=== PATIENT | female | born 1965 | race Caucasian/White ===

== ENCOUNTER → 2016-12-02 | Outpatient (CLI) | payer OTHER ==
--- NOTE | 2016-12-02 14:13 | RAD ---
Indication chronic pain associated with a fall approximately one year previously. AP and lateral views targeted to the sacrum and coccyx were obtained. No bony abnormality is seen. Vascular calcification is noted
--- NOTE | 2016-12-02 14:17 | RAD ---
Indication persistent pain associated with a fall one year ago. AP and frog leg views of the left hip were obtained. No acute bony finding is seen. Significant degenerative changes are not apparent on plain films
--- NOTE | 2016-12-02 14:18 | RAD ---
Indication fall. Pain. AP oblique and lateral views of the left knee were obtained. No bony abnormality is seen
== END | disposition home or self-care (01) ==
LOC: DXRAD 13:17
PROVIDERS: ATTEND Family Medicine
DX: M25.552 Pain in left hip (principal); M25.562 Pain in left knee; W19.XXXD Unspecified fall, subsequent encounter
CPT/HCPCS: 72220; 73502; 73562

== ENCOUNTER 2017-01-19 21:46 | Emergency (ER) | payer OTHER ==
[~2017-01-19] VITALS: Ht 157.5 cm; Wt 52.2 kg
[2017-01-19] MEDS ORDERED: ONDANSETRON PF 4 MG/2 ML VIAL. IV ONE (22:30)
[2017-01-19] MEDS ORDERED: KETOROLAC 30 MG/ML VIAL. IV ONE (22:30)
[2017-01-19] MEDS ORDERED: IV NORMAL SALINE 1,000ML 1,000 ML IV ONE (22:30)
[2017-01-19] MEDS ORDERED: ACETAMINOPHEN 325 MG TABLET PO ONE ×2 (22:30)
[2017-01-19 23:30] LABS: BASO # 0.1 x10^3/uL (0.0-0.2); BASO % 1 % (0-3); EOS # 0.1 x10^3/uL (0.0-0.7); EOS % 1 % (0-3); HEMATOCRIT 39.2 % (36.0-47.0); HEMOGLOBIN 13.5 g/dL (12.0-15.5); LYMPH # 1.9 x10^3/uL (1.0-4.8); LYMPH % 19 % (24-48); MEAN CORPUSCULAR HEMOGLOBIN 31 pg (25-35); MEAN CORPUSCULAR HGB CONC 34 g/dL (31-37); MEAN CORPUSCULAR VOLUME 90 fL (79-100); MONO % 10 % (0-9); NEUT # 6.8 x10^3uL (1.8-7.7); NEUT % 69 % (31-73); PLATELET COUNT 237 x10^3/uL (140-400); RED BLOOD COUNT 4.34 x10^6/uL (3.50-5.40); RED CELL DISTRIBUTION WIDTH 13.3 % (11.5-14.5); WHITE BLOOD COUNT 9.9 x10^3/uL (4.0-11.0)
[2017-01-19 23:36] LABS: ALBUMIN 2.9 g/dL (3.4-5.0); ALBUMIN/GLOBULIN RATIO 0.7 (1.0-1.7); CALCIUM 8.5 mg/dL (8.5-10.1); CREATININE 0.9 mg/dL (0.6-1.0); POTASSIUM 3.7 mmol/L (3.5-5.1); TOTAL BILIRUBIN 0.2 mg/dL (0.2-1.0); TOTAL PROTEIN 6.8 g/dL (6.4-8.2)
[2017-01-19 23:44] LABS: MONONUCLEOSIS PATIENT NEGATIVE (NEGATIVE)
[2017-01-19 23:53] LABS: BILIRUBIN,URINE NEG (NEG); CLARITY,URINE CLEAR; COLOR,URINE YELLOW; GLUCOSE,URINE NEG (NEG); UROBILINOGEN,URINE 0.2 mg/dL (0.2 mg/dL)
[2017-01-19 23:54] LABS: BACTERIA,URINE FEW /HPF (0-FEW); NITRITE,URINE NEG (NEG); RBC,URINE 0 /HPF (0-2); SQUAMOUS EPITHELIAL CELL,UR OCC /LPF; WBC,URINE OCC /HPF (0-4)
--- NOTE | 2017-01-20 00:22 | PHYS DOC ---
Adult General Chief Complaint Chief Complaint: HEADACHE HPI HPI Patient is a 51-year-old female who presents here today secondary to fever, headache, neck pain, sore throat, ear pain. Patient has a history significant for COPD. Patient reports that she seen her family doctor over the last 3 weeks and has been put on at least 3 different rounds of antibiotics. Patient reports that she was given a course of Zithromax, clarithromycin, minocycline, as recently as finished her antibiotics a couple days ago. Patient presents to the ER today with complaints of fevers to 101.6 at home and has taken ibuprofen 800 mg 2 doses today. Patient denies any nausea vomiting or diarrhea. Patient has any chest pain or shortness of breath. Patient is complaining of sore throat. Patient has no history of hypertension diabetes liver or kidney problems. Patient is status post a total abdominal hysterectomy. Patient does not smoke drink or do any drugs. Patient is allergic to any medications. Patient denies any abdominal discomfort or chest pain. Patient denies any photophobia. Family reports no change in mentation. Review of systems: Constitutional: Admits to fever and chills Eyes: Denies change in visual acuity, redness, or eye pain HENT: Denies nasal congestion All other review systems are negative except as documented in the history of present illness portion. Physical exam: Constitutional: Well developed, well nourished, no acute distress, non-toxic appearance. HENT: Normocephalic, atraumatic, bilateral external ears normal, oropharynx moist, no oral exudates, nose normal. Mild facial erythema no exudates. No trismus. Uvula midline. No evidence of abscess. Eyes: PERRLA, EOMI, conjunctiva normal, no discharge. Neck: Normal range of motion, no tenderness, supple, no stridor. No Kernig's or Brudzinski signs. No photophobia, no nuchal rigidity, neck supple, no sinus symptoms consistent with meningitis. Cardiovascular:Heart rate regular rhythm, Lungs & Thorax: Bilateral breath sounds clear to auscultation Abdomen: Bowel sounds normal, soft, no tenderness, no masses, no pulsatile masses. Skin: Warm, dry, no erythema, no rash. Back: No tenderness, no CVA tenderness. Extremities: No tenderness, no cyanosis, no clubbing, ROM intact, no edema. Neurologic: Alert and oriented X 3, normal motor function, normal sensory function, no focal deficits noted. Psychologic: Affect normal, judgement normal, mood normal. Chest x-ray: Normal heart size no infiltrates or effusions as interpreted by ER physician. CBC, CMP, UA: All within normal limits. Assessment and plan This is a 51-year-old female who presents here today with a fever 102.1 in the ED with a headache, neck pain, sore throat. Patient's ER workup is been unremarkable. Etiology of her fever is unclear. Patient does not present with any significant symptoms consistent with meningitis, encephalitis, abdominal source, urinary tract infection, strep throat, mono. Patient's workup is unremarkable and she is clinically hemodynamically stable for discharged home at this time. Patient has been given a dose of Toradol Tylenol IV fluids in the ED. Patient's temperature has defervesced and she feels 100% improved. Patient feels very comfortable with the plan to be discharged home and she will see her doctor tomorrow for reevaluation and decision making on antibiotics. Patient currently does not meet any criteria for initiating antibiotic therapy at this time since no source has been identified and we've agreed after discussion with the patient to allow her physician tomorrow to make that decision. She was instructed to return the ER she has any new symptoms. Current Medications Current Medications Current Medications Medications (Trade) Dose Ordered Sig/Wero Start Time Stop Time Status Last Admin Dose Admin Acetaminophen (Tylenol) 650 mg 1X ONCE 01/19/17 22:30 01/19/17 22:31 DC 01/19/17 22:57 650 MG Ketorolac Tromethamine (Toradol) 30 mg 1X ONCE 01/19/17 22:30 01/19/17 22:31 DC 01/19/17 22:58 30 MG Ondansetron HCl (Zofran) 4 mg 1X ONCE 01/19/17 22:30 01/19/17 22:31 DC 01/19/17 22:58 4 MG Sodium Chloride 1,000 ml @ 1,000 mls/hr 1X ONCE 01/19/17 22:30 01/19/17 23:29 DC 01/19/17 22:59 1,000 MLS/HR Allergies Allergies Allergies Coded Allergies Type Severity Reaction Last Updated Verified No Known Drug Allergies 01/19/17 No Current Patient Data Lab Results Laboratory Tests Test 01/19/17 22:40 01/19/17 22:45 Urine Collection Type Unknown Urine Color Yellow Urine Clarity Clear Urine pH 7.0 Urine Specific [place] 1.015 Urine Protein Neg (NEG-TRACE) Urine Glucose (UA) Neg mg/dL (NEG) Urine Ketones (Stick) Neg mg/dL (NEG) Urine Blood Trace (NEG) Urine Nitrite Neg (NEG) Urine Bilirubin Neg (NEG) Urine Urobilinogen Dipstick 0.2 mg/dL (0.2 mg/dL) Urine Leukocyte Esterase Trace (NEG) Urine RBC 0 /HPF (0-2) Urine WBC Occ /HPF (0-4) Urine Squamous Epithelial Cells Occ /LPF Urine Bacteria Few /HPF (0-FEW) White Blood Count 9.9 x10^3/uL (4.0-11.0) Red Blood Count 4.34 x10^6/uL (3.50-5.40) Hemoglobin 13.5 g/dL (12.0-15.5) Hematocrit 39.2 % (36.0-47.0) Mean Corpuscular Volume 90 fL (79-100) Mean Corpuscular Hemoglobin 31 pg (25-35) Mean Corpuscular Hemoglobin Concent 34 g/dL (31-37) Red Cell Distribution Width 13.3 % (11.5-14.5) Platelet Count 237 x10^3/uL (140-400) Neutrophils (%) (Auto) 69 % (31-73) Lymphocytes (%) (Auto) 19 % (24-48) L Monocytes (%) (Auto) 10 % (0-9) H Eosinophils (%) (Auto) 1 % (0-3) Basophils (%) (Auto) 1 % (0-3) Neutrophils # (Auto) 6.8 x10^3uL (1.8-7.7) Lymphocytes # (Auto) 1.9 x10^3/uL (1.0-4.8) Monocytes # (Auto) 1.0 x10^3/uL (0.0-1.1) Eosinophils # (Auto) 0.1 x10^3/uL (0.0-0.7) Basophils # (Auto) 0.1 x10^3/uL (0.0-0.2) Sodium Level 137 mmol/L (136-145) Potassium Level 3.7 mmol/L (3.5-5.1) Chloride Level 103 mmol/L (98-107) Carbon Dioxide Level 28 mmol/L (21-32) Anion Gap 6 (6-14) Blood Urea Nitrogen 5 mg/dL (7-20) L Creatinine 0.9 mg/dL (0.6-1.0) Estimated GFR (Cockcroft-Gault) 66.0 BUN/Creatinine Ratio 6 (6-20) Glucose Level 102 mg/dL (70-99) H Calcium Level 8.5 mg/dL (8.5-10.1) Total Bilirubin 0.2 mg/dL (0.2-1.0) Aspartate Amino Transferase (AST) 11 U/L (15-37) L Alanine Aminotransferase (ALT) 16 U/L (14-59) Alkaline Phosphatase 101 U/L (46-116) Total Protein 6.8 g/dL (6.4-8.2) Albumin 2.9 g/dL (3.4-5.0) L Albumin/Globulin Ratio 0.7 (1.0-1.7) L Heterophil Agglutinins Negative (NEGATIVE) EKG EKG [] Radiology/Procedures Radiology/Procedures [] Course & Med Decision Making Course & Med Decision Making Pertinent Labs and Imaging studies reviewed. (See chart for details) [] Dragon Disclaimer Dragon Disclaimer This chart was dictated in whole or in part using Voice Recognition software in a busy, high-work load, and often noisy Emergency Department environment. It may contain unintended and wholly unrecognized errors or omissions. Departure Departure: Impression: Primary Impression: Fever Additional Impression: Headache Disposition: 01 HOME, SELF-CARE Condition: IMPROVED Referrals: RUSSELL HSU (PCP) Patient Instructions: Fever, Viral Syndrome Additional Instructions: You were seen and evaluated in the ER today for your fever and headache. No clear source of been identified. Return the ER if your headache worsens. Please follow-up with her doctor to further evaluate your symptoms and to see if he wants to put you on any antibiotics. Your symptoms today appear to be more consistent with a viral illness and antibiotics do not appear to be indicated at this time. Return to the ER immediately if he have any new or worsening symptoms. Problem Qualifiers KELLEE SRINIVASAN MD Jan 20, 2017 00:22
[2017-01-20 00:34] VITALS: BP 82/49
--- NOTE | 2017-01-20 07:57 | RAD ---
EXAM: CHEST 2 VIEWS History: Fever, headache, weakness COMPARISON: None TECHNIQUE: PA and lateral chest radiographs FINDINGS: The cardiomediastinal silhouette is within normal limits. Mild hyperinflated lungs likely changes of COPD. The costophrenic sulci are clear and well demarcated bilaterally. IMPRESSION: Mild hyperinflated lungs likely changes of COPD.
== END 2017-01-20 00:34 | disposition home or self-care (01) ==
LOC: ER 21:46
DX: R50.9 Fever, unspecified (principal); R51 Headache; M54.2 Cervicalgia; J02.9 Acute pharyngitis, unspecified; H92.09 Otalgia, unspecified ear; J44.9 Chronic obstructive pulmonary disease, unspecified
CPT/HCPCS: 36415; 71020; 80053; 81001; 85025; 86308; 87086; 87880; 96361; 96374; 96375; 99285; J1885; J2405; J7030

== ENCOUNTER 2018-01-05 14:19 | Inpatient (IN) | payer MEDICARE, OTHER ==
[~2018-01-05] VITALS: Ht 157.5 cm; Wt 52.7 kg
[2018-01-05] MEDS ORDERED: IV NORMAL SALINE 1,000ML 1,000 ML IV ONE (15:15)
[2018-01-05] MEDS ORDERED: PIP/TAZO PER PHARMACY MC PRN (15:15)
[2018-01-05] MEDS ORDERED: IV NORMAL SALINE 50ML 50 ML ONE (15:28)
[2018-01-05] MEDS ORDERED: PIPERACILLIN/TAZOBACTAM 4.5 GM VIAL IV ONE (15:28)
[2018-01-05] MEDS ORDERED: PIPERACILLIN/TAZOBACTAM 4.5 GM in IV NORMAL SALINE 50ML 50 ML IV ONE (15:30)
[2018-01-05 15:38] LABS: BASO % 0 % (0-3); EOS % 0 % (0-3); HEMATOCRIT 43.6 % (36.0-47.0); HEMOGLOBIN 15.2 g/dL (12.0-15.5); LYMPH # 0.5 x10^3/uL (1.0-4.8); LYMPH % 4 % (24-48); MEAN CORPUSCULAR HEMOGLOBIN 32 pg (25-35); MEAN CORPUSCULAR HGB CONC 35 g/dL (31-37); MEAN CORPUSCULAR VOLUME 93 fL (79-100); MONO # 1.4 x10^3/uL (0.0-1.1); MONO % 12 % (0-9); NEUT % 84 % (31-73); PLATELET COUNT 156 x10^3/uL (140-400); RED BLOOD COUNT 4.71 x10^6/uL (3.50-5.40); RED CELL DISTRIBUTION WIDTH 13.4 % (11.5-14.5); WHITE BLOOD COUNT 11.9 x10^3/uL (4.0-11.0)
--- NOTE | 2018-01-05 15:46 | RAD ---
Portable chest, 01/05/2018: HISTORY: Chest pain Comparison is made to a study from 01/19/2017. The patient positioning is kyphotic. The heart size is normal. No pulmonary infiltrate is seen. There is no evidence of pleural fluid. IMPRESSION: No acute cardiopulmonary abnormality is detected. Electronically signed by: Brendon Main MD (01/05/2018 3:42 PM) [facility]
[2018-01-05 15:53] LABS: ALBUMIN 2.7 g/dL (3.4-5.0); ALBUMIN/GLOBULIN RATIO 0.6 (1.0-1.7); CALCIUM 8.5 mg/dL (8.5-10.1); CREATININE 0.9 mg/dL (0.6-1.0); GFR 65.8; POTASSIUM 3.6 mmol/L (3.5-5.1); TOTAL BILIRUBIN 0.7 mg/dL (0.2-1.0); TOTAL PROTEIN 7.5 g/dL (6.4-8.2)
[2018-01-05 15:57] LABS: INFLUENZA A PATIENT NEGATIVE (NEGATIVE); INFLUENZA B PATIENT NEGATIVE (NEGATIVE)
--- NOTE | 2018-01-05 16:20 | PHYS DOC ---
Past History Past Medical History: COPD Past Surgical History: Appendectomy, Hysterectomy Alcohol Use: None Drug Use: None Adult General Chief Complaint Chief Complaint: ABNORMAL LABS HPI HPI 52-year-old female presents with a several day history of malaise, body aches and diarrhea. She was seen at an outside facility and had some blood work drawn. The states that she has done nothing but lay in bed over the last several days and is just not been herself. She denies any headache or neck pain. She was told by her physician in [facility] to come to the emergency department because her blood culture showed bacterial growth. Patient denies any urinary symptoms. She's not had any cough or congestion. She has had subjective fever at home. Review of Systems Review of Systems Constitutional: Reports fever[] Eyes: Denies change in visual acuity, redness, or eye pain [] HENT: Denies nasal congestion or sore throat [] Respiratory: Denies cough or shortness of breath [] Cardiovascular: No additional information not addressed in HPI [] GI: Denies abdominal pain, nausea, vomiting, bloody stools or diarrhea [] : Denies dysuria or hematuria [] Musculoskeletal: Denies back pain or joint pain [] Integument: Denies rash or skin lesions [] Neurologic: Denies headache, focal weakness or sensory changes [] Endocrine: Denies polyuria or polydipsia [] All other systems were reviewed and found to be within normal limits, except as documented in this note. Current Medications Current Medications Current Medications Medications (Trade) Dose Ordered Sig/Wero Start Time Stop Time Status Last Admin Dose Admin Piperacillin Sod/ Tazobactam Sod (Zosyn Per Pharmacy) 1 each PRN DAILY PRN 01/05/18 15:15 Piperacillin Sod/ Tazobactam Sod (Zosyn) 4.5 gm STK-MED ONCE 01/05/18 15:28 01/05/18 15:29 DC Piperacillin Sod/ Tazobactam Sod 4.5 gm/Sodium Chloride 50 ml @ 100 mls/hr 1X ONCE 01/05/18 15:30 01/05/18 15:59 DC 01/05/18 15:32 100 MLS/HR Sodium Chloride 50 ml @ As Directed STK-MED ONCE 01/05/18 15:28 01/05/18 15:29 DC Allergies Allergies Allergies Coded Allergies Type Severity Reaction Last Updated Verified No Known Drug Allergies 01/19/17 No Physical Exam Physical Exam Constitutional: Frail, no acute distress, appears acutely ill. [] HENT: Normocephalic, atraumatic, bilateral external ears normal, oropharynx moist, no oral exudates, nose normal. [] Eyes: PERRLA, EOMI, conjunctiva normal, no discharge. [] Neck: Normal range of motion, no tenderness, supple, no stridor. [] Cardiovascular:Heart rate regular rhythm, no murmur [] Lungs & Thorax: Bilateral breath sounds clear to auscultation [] Abdomen: Bowel sounds normal, soft, no tenderness, no masses, no pulsatile masses. [] Skin: Warm, dry, no erythema, no rash. [] Back: No tenderness, no CVA tenderness. [] Extremities: No tenderness, no cyanosis, no clubbing, ROM intact, no edema. [] Neurologic: Alert and oriented X 3, normal motor function, normal sensory function, no focal deficits noted. [] Psychologic: Depressed affect. [] Current Patient Data Vital Signs Vital Signs Date Time Temp Pulse Resp B/P (MAP) Pulse Ox O2 Delivery O2 Flow Rate FiO2 01/05/18 14:45 99.6 113 22 96 Room Air Lab Results Laboratory Tests Test 01/05/18 15:22 White Blood Count 11.9 x10^3/uL (4.0-11.0) H Red Blood Count 4.71 x10^6/uL (3.50-5.40) Hemoglobin 15.2 g/dL (12.0-15.5) Hematocrit 43.6 % (36.0-47.0) Mean Corpuscular Volume 93 fL (79-100) Mean Corpuscular Hemoglobin 32 pg (25-35) Mean Corpuscular Hemoglobin Concent 35 g/dL (31-37) Red Cell Distribution Width 13.4 % (11.5-14.5) Platelet Count 156 x10^3/uL (140-400) Neutrophils (%) (Auto) 84 % (31-73) H Lymphocytes (%) (Auto) 4 % (24-48) L Monocytes (%) (Auto) 12 % (0-9) H Eosinophils (%) (Auto) 0 % (0-3) Basophils (%) (Auto) 0 % (0-3) Neutrophils # (Auto) 10.0 x10^3uL (1.8-7.7) H Lymphocytes # (Auto) 0.5 x10^3/uL (1.0-4.8) L Monocytes # (Auto) 1.4 x10^3/uL (0.0-1.1) H Eosinophils # (Auto) 0.0 x10^3/uL (0.0-0.7) Basophils # (Auto) 0.0 x10^3/uL (0.0-0.2) Sodium Level 130 mmol/L (136-145) L Potassium Level 3.6 mmol/L (3.5-5.1) Chloride Level 97 mmol/L (98-107) L Carbon Dioxide Level 22 mmol/L (21-32) Anion Gap 11 (6-14) Blood Urea Nitrogen 18 mg/dL (7-20) Creatinine 0.9 mg/dL (0.6-1.0) Estimated GFR (Cockcroft-Gault) 65.8 BUN/Creatinine Ratio 20 (6-20) Glucose Level 137 mg/dL (70-99) H Lactic Acid Level 1.2 mmol/L (0.4-2.0) Calcium Level 8.5 mg/dL (8.5-10.1) Total Bilirubin 0.7 mg/dL (0.2-1.0) Aspartate Amino Transferase (AST) 61 U/L (15-37) H Alanine Aminotransferase (ALT) 46 U/L (14-59) Alkaline Phosphatase 172 U/L (46-116) H Total Protein 7.5 g/dL (6.4-8.2) Albumin 2.7 g/dL (3.4-5.0) L Albumin/Globulin Ratio 0.6 (1.0-1.7) L Influenza Type A (Rapid) Negative (NEGATIVE) Influenza Type B (Rapid) Negative (NEGATIVE) EKG EKG [] Radiology/Procedures Radiology/Procedures [] Impressions: PROCEDURE: CHEST AP ONLY Portable chest, 01/05/2018: HISTORY: Chest pain Comparison is made to a study from 01/19/2017. The patient positioning is kyphotic. The heart size is normal. No pulmonary infiltrate is seen. There is no evidence of pleural fluid. IMPRESSION: No acute cardiopulmonary abnormality is detected. Course & Med Decision Making Course & Med Decision Making Pertinent Labs and Imaging studies reviewed. (See chart for details) [ED course: Evaluation reveals 52-year-old female who appears acutely ill. Her laboratory studies earlier unrevealing her chest x-ray was clear. During her stay in the emergency department she received broad-spectrum antibiotics because we were unable to locate her primary care physician exactly what had Crohn in her blood cultures. I believe the patient should stay in the hospital given the fact that she has fairly significant malaise, subjective fevers and a report of bacteremia.] Dragon Disclaimer Dragon Disclaimer This electronic medical record was generated, in whole or in part, using a voice recognition dictation system. Departure Departure: Impression: Primary Impression: Bacteremia Disposition: ADMITTED INPATIENT Admitting Physician: Other (colt) Condition: STABLE Referrals: ALEXANDER HSU NP (PCP) ALLEN VAZQUEZ DO Jan 05, 2018 16:20
[2018-01-05] MEDS ORDERED: ACETAMINOPHEN 325 MG TABLET PO PRN (16:30)
[2018-01-05 17:50] VITALS: BP 91/59
[2018-01-05] MEDS: IV NORMAL SALINE 1,000ML 1,000 ML IV SCH ×3 (18:26→22:01)
[2018-01-05 19:24] VITALS: BP 95/46
[2018-01-05 22:20] VITALS: BP 98/56
[2018-01-05] MEDS ORDERED: TIOT18CA INH (23:40)
[2018-01-05] MEDS ORDERED: ONDA4TAB11 PO (23:40)
[2018-01-05] MEDS ORDERED: ALBU8.5H8 INH (23:40)
[2018-01-05] MEDS ORDERED: BUPR150T11 PO (23:40)
[2018-01-05] MEDS ORDERED: POTA20TA4 PO (23:40)
[2018-01-05] MEDS ORDERED: ROFL500T7 PO (23:40)
[2018-01-05] MEDS ORDERED: HYDR-2762 PO (23:40)
[2018-01-05] MEDS: PIPERACILLIN/TAZOBACTAM 4.5 GM in IV NORMAL SALINE 50ML 50 ML IV SCH (23:47)
[2018-01-06 00:15] VITALS: BP 92/62
[2018-01-06] MEDS: IV NORMAL SALINE 1,000ML 1,000 ML IV SCH ×2 (00:27→08:01)
[2018-01-06 03:06] LABS: BACTERIA,URINE 0 /HPF (0-FEW); BILIRUBIN,URINE NEG (NEG); CLARITY,URINE CLEAR; COLOR,URINE YELLOW; GLUCOSE,URINE NEG (NEG); NITRITE,URINE NEG (NEG); RBC,URINE OCC /HPF (0-2); SQUAMOUS EPITHELIAL CELL,UR FEW /LPF; UROBILINOGEN,URINE 2 mg/dL (0.2 mg/dL); WBC,URINE OCC /HPF (0-4)
[2018-01-06 05:35] VITALS: BP 96/65
[2018-01-06] MEDS: PIPERACILLIN/TAZOBACTAM 4.5 GM in IV NORMAL SALINE 50ML 50 ML IV SCH ×3 (05:38→17:35)
[2018-01-06 06:23] LABS: BASO % 0 % (0-3); EOS % 0 % (0-3); HEMATOCRIT 36.6 % (36.0-47.0); HEMOGLOBIN 12.4 g/dL (12.0-15.5); LYMPH # 0.9 x10^3/uL (1.0-4.8); LYMPH % 10 % (24-48); MEAN CORPUSCULAR HEMOGLOBIN 32 pg (25-35); MEAN CORPUSCULAR HGB CONC 34 g/dL (31-37); MEAN CORPUSCULAR VOLUME 94 fL (79-100); MONO # 1.2 x10^3/uL (0.0-1.1); MONO % 14 % (0-9); NEUT # 6.9 x10^3uL (1.8-7.7); NEUT % 76 % (31-73); PLATELET COUNT 130 x10^3/uL (140-400); RED BLOOD COUNT 3.92 x10^6/uL (3.50-5.40); RED CELL DISTRIBUTION WIDTH 13.3 % (11.5-14.5); WHITE BLOOD COUNT 9.1 x10^3/uL (4.0-11.0)
[2018-01-06 06:32] LABS: CALCIUM 7.3 mg/dL (8.5-10.1); CREATININE 0.8 mg/dL (0.6-1.0); GFR 75.3; POTASSIUM 3.3 mmol/L (3.5-5.1)
[2018-01-06] MEDS: LACTOBACILLUS RHAMNOSUS GG 1 CAPSULE. PO SCH ×2 (08:01→20:19)
[2018-01-06] MEDS ORDERED: BUPR150T8 PO (09:02)
[2018-01-06] MEDS ORDERED: ALPR0.254 PO (09:09)
[2018-01-06] MEDS ORDERED: FEXO180T81 PO (09:09)
[2018-01-06] MEDS ORDERED: CYCL-331 PO (09:09)
[2018-01-06] MEDS ORDERED: RALO60TA PO (09:09)
[2018-01-06] MEDS ORDERED: IBUP800T19 PO (09:09)
[2018-01-06] MEDS ORDERED: SUMA100T4 PO (09:09)
[2018-01-06] MEDS ORDERED: FLUT16SP21 NS (09:09)
[2018-01-06] MEDS ORDERED: TRAZ-85 PO (09:09)
[2018-01-06] MEDS ORDERED: PROM5SYR2 PO (09:09)
[2018-01-06] MEDS ORDERED: FLUT1DIS5 IH (09:09)
--- NOTE | 2018-01-06 09:14 | PDOC1 ---
History of Present Illness History of Present Illness 52-year-old female sent to the emergency department from [facility] Dr. Dunne's office with report of positive blood culture. Patient states that she began feeling ill with diarrhea, fever, and overwhelming fatigue on Thursday. Thursday morning when she wasn't strong enough to get out of bed her took her to [facility] [place] for evaluation. She was diagnosed with gastroenteritis and discharged home initially with Zofran. Although the diarrhea resolved the patient remained feeling ill and somnolescent. Yesterday the patient's spouse contacted her PCP by phone with the recommendation that he bring her to [facility] emergency department for evaluation and hospitalization with positive blood culture. Dr. Dunne faxed blood culture results (Klebsiella pneumonia with broad sensitivities) and she was admitted with Zosyn intravenously. On my evaluation today patient states she is "100% better." She says she has energy and is able to stay awake for the first time in days. She did spike a fever overnight but otherwise denies any new or worsening symptoms. She does have a cough but states it's not worse than baseline with her COPD. Further questioning, patient did have a left acromioplasty and scar tissue and debridement 2-3 weeks ago which at this point is the likely source of infection. She denies any worsening of shoulder pain or swelling but states that she had been doing very well with outpatient physical therapy. Past medical history: COPD, anxiety, osteoporosis, migraines, allergic rhinitis Past surgical history: Bilateral shoulder surgeries, herniorrhaphy, hysterectomy Social history: Patient is former smoker nonuser of alcohol or illicit substances Chief Complaint: ABNORMAL LABS Allergies: Coded Allergies: No Known Drug Allergies (Unverified , 01/19/17) Review of Systems Review Of Systems Fourteen system , review of systems has been reviewed. See HPI for pertinent positives and negative responses, other pope all other systems are negative, non pertinent or non contributory Constitutional: Fever, Chills, Sweats, Weakness, Malaise Eyes: No: Decreased vision, Eye Pain, Photophobia ENT: No: Ear pain, Nose pain, Throat pain Respiratory: YES: Cough, Wheezing (pulmonary symptoms are at her baseline); No: Shortness of breath, SOB with excertion Cardiovascular: No: Chest Pain, Palpitations, Paroxysmal Noc. Dyspnea Gastrointestinal: YES: Abdominal Pain, Diarrhea; No: Nausea, Vomiting, Constipation Musculoskeletal: No: Joint Pain, Joint Stiffness, Joint Swelling Neurological: No: Behavorial Changes, Confusion, Dizziness, Memory Loss Medications Current Medications Sodium Chloride 1,000 ml @ 1,000 mls/hr 1X ONCE IV Last administered on at 15:31; Start 01/05/18 at 15:15; Stop 01/05/18 at 16:14; Status DC Piperacillin Sod/ Tazobactam Sod (Zosyn Per Pharmacy) 1 each PRN DAILY PRN MC SEE COMMENTS; Start 01/05/18 at 15:15 Piperacillin Sod/ Tazobactam Sod 4.5 gm/Sodium Chloride 50 ml @ 100 mls/hr 1X ONCE IV Last administered on 01/05/18at 15:32; Start 01/05/18 at 15:30; Stop 03/14 at 15:59; Status DC Sodium Chloride 50 ml @ As Directed STK-MED ONCE .ROUTE ; Start 01/05/18 at 15: 28; Stop 01/05/18 at 15:29; Status DC Piperacillin Sod/ Tazobactam Sod (Zosyn) 4.5 gm STK-MED ONCE IV ; Start at 15:28; Stop 01/05/18 at 15:29; Status DC Sodium Chloride 1,000 ml @ 125 mls/hr Q8H IV Last administered on 01/06/18at 08 :01; Start 01/05/18 at 16:30; Stop 01/06/18 at 16:29 Acetaminophen (Tylenol) 650 mg PRN Q4HRS PRN PO FEVER; Start 01/05/18 at 16:30 ; Stop 01/06/18 at 16:29 Sodium Chloride 1,000 ml @ 1,500 mls/hr Q40M IV Last administered on at 22:01; Start 01/05/18 at 21:00; Stop 01/05/18 at 21:59; Status DC Piperacillin Sod/ Tazobactam Sod 4.5 gm/Sodium Chloride 50 ml @ 100 mls/hr Q6HRS IV Last administered on 01/06/18at 05:38; Start 01/06/18 at 00:00 Lactobacillus Rhamnosus (Culturelle) 1 cap BID PO Last administered on at 08:01; Start 01/06/18 at 09:00 Active Scripts Active Reported Robina Allergy (Fexofenadine Hcl) 180 Mg Tablet 1 Tab PO DAILY Prometh-Codein 6.25-10 mg/5 ml (Promethazine HCl/Codeine) 5 Ml Syrup 5-10 Ml PO Q12HR PRN Fluticasone Propionate Nasal [place] (Fluticasone Propionate) 16 Gm [place].susp 2 Spr NS DAILY PRN Ibuprofen 800 Mg Tablet 1 Tab PO TID PRN Sumatriptan Succinate 100 Mg Tablet 1 Tab PO UD PRN Evista (Raloxifene Hcl) 60 Mg Tablet 1 Tab PO DAILY Alprazolam 0.25 Mg Tablet 0.5 Tab PO BID PRN Trazodone Hcl 50 Mg Tablet 1 Tab PO QHS Cyclobenzaprine Hcl 10 Mg Tablet 1 Tab PO TID Advair 500-50 Diskus (Fluticasone/Salmeterol) 1 Each Disk.w.dev 1 Puff IH BID Wellbutrin Sr (Bupropion Hcl) 150 Mg Tablet.er 1 Tab PO QHS Proair Hfa Inhaler (Albuterol Sulfate) 8.5 Gm Hfa.aer.ad 1-2 Puff INH PRN Q4HRS PRN LAST DOSE GIVEN: DATE: TIME: NEXT DOSE DUE: DATE: TIME: Spiriva (Tiotropium [place]) 18 Mcg Cap.w.dev 18 Mg INH DAILY LAST DOSE GIVEN: DATE: TIME: NEXT DOSE DUE: DATE: TIME: Bupropion Hcl Sr (Bupropion Hcl) 150 Mg Tablet.er 300 Mg PO DAILY LAST DOSE GIVEN: DATE: TIME: NEXT DOSE DUE: DATE: TIME: Hydrocodone-Apap 7.5-325 (Hydrocodone Bit/Acetaminophen) 1 Each Tablet 7.5 Mg PO PRN Q6HRS PRN LAST DOSE GIVEN: DATE: TIME: NEXT DOSE DUE: DATE: TIME: Daliresp (Roflumilast) 500 Mcg Tablet 500 Mcg PO HS LAST DOSE GIVEN: DATE: TIME: NEXT DOSE DUE: DATE: TIME: Klor-Con M20 (Potassium Chloride) 20 Meq Tab.er.prt 20 Meq PO QODAY LAST DOSE GIVEN: DATE: TIME: NEXT DOSE DUE: DATE: TIME: Exam Vital Signs Vital Signs Date Time Temp Pulse Resp B/P (MAP) Pulse Ox O2 Delivery O2 Flow Rate FiO2 9/12/18 05:35 99.1 88 18 96/65 (75) 97 Nasal Cannula 2.0 General Appearance: Alert, Oriented X3, Cooperative, No acute distress HEENT: Atraumatic, PERRLA, EOMI, Mucous membr. moist/pink Respiratory: Other (faint wheeze bilaterally with good air movement no respiratory distress) Heart: Regular rate, No murmurs Abdominal: Normal bowel sounds, Soft, No tenderness Extremities: No clubbing, No cyanosis, No edema Neuro: Normal speech, Normal tone, Sensation intact, Cranial nerves 3-12 NL Psych/Mental Status: Mental status NL, Mood NL Assessment/Plan Assessment/Plan Klebsiella pneumonia bacteremia COURSE Allergies Coded Allergies Type Severity Reaction Last Updated Verified No Known Drug Allergies 01/19/17 No Laboratory Tests Test 01/05/18 15:22 01/06/18 02:45 01/06/18 05:57 White Blood Count 11.9 x10^3/uL (4.0-11.0) 9.1 x10^3/uL (4.0-11.0) Red Blood Count 4.71 x10^6/uL (3.50-5.40) 3.92 x10^6/uL (3.50-5.40) Hemoglobin 15.2 g/dL (12.0-15.5) 12.4 g/dL (12.0-15.5) Hematocrit 43.6 % (36.0-47.0) 36.6 % (36.0-47.0) Mean Corpuscular Volume 93 fL (79-100) 94 fL (79-100) Mean Corpuscular Hemoglobin 32 pg (25-35) 32 pg (25-35) Mean Corpuscular Hemoglobin Concent 35 g/dL (31-37) 34 g/dL (31-37) Red Cell Distribution Width 13.4 % (11.5-14.5) 13.3 % (11.5-14.5) Platelet Count 156 x10^3/uL (140-400) 130 x10^3/uL (140-400) Neutrophils (%) (Auto) 84 % (31-73) 76 % (31-73) Lymphocytes (%) (Auto) 4 % (24-48) 10 % (24-48) Monocytes (%) (Auto) 12 % (0-9) 14 % (0-9) Eosinophils (%) (Auto) 0 % (0-3) 0 % (0-3) Basophils (%) (Auto) 0 % (0-3) 0 % (0-3) Neutrophils # (Auto) 10.0 x10^3uL (1.8-7.7) 6.9 x10^3uL (1.8-7.7) Lymphocytes # (Auto) 0.5 x10^3/uL (1.0-4.8) 0.9 x10^3/uL (1.0-4.8) Monocytes # (Auto) 1.4 x10^3/uL (0.0-1.1) 1.2 x10^3/uL (0.0-1.1) Eosinophils # (Auto) 0.0 x10^3/uL (0.0-0.7) 0.0 x10^3/uL (0.0-0.7) Basophils # (Auto) 0.0 x10^3/uL (0.0-0.2) 0.0 x10^3/uL (0.0-0.2) Sodium Level 130 mmol/L (136-145) 135 mmol/L (136-145) Potassium Level 3.6 mmol/L (3.5-5.1) 3.3 mmol/L (3.5-5.1) Chloride Level 97 mmol/L (98-107) 105 mmol/L (98-107) Carbon Dioxide Level 22 mmol/L (21-32) 22 mmol/L (21-32) Anion Gap 11 (6-14) 8 (6-14) Blood Urea Nitrogen 18 mg/dL (7-20) 11 mg/dL (7-20) Creatinine 0.9 mg/dL (0.6-1.0) 0.8 mg/dL (0.6-1.0) Estimated GFR (Cockcroft-Gault) 65.8 75.3 BUN/Creatinine Ratio 20 (6-20) Glucose Level 137 mg/dL (70-99) 104 mg/dL (70-99) Lactic Acid Level 1.2 mmol/L (0.4-2.0) Calcium Level 8.5 mg/dL (8.5-10.1) 7.3 mg/dL (8.5-10.1) Total Bilirubin 0.7 mg/dL (0.2-1.0) Aspartate Amino Transf (AST/SGOT) 61 U/L (15-37) Alanine Aminotransferase (ALT/SGPT) 46 U/L (14-59) Alkaline Phosphatase 172 U/L (46-116) Total Protein 7.5 g/dL (6.4-8.2) Albumin 2.7 g/dL (3.4-5.0) Albumin/Globulin Ratio 0.6 (1.0-1.7) Influenza Type A (Rapid) Negative (NEGATIVE) Influenza Type B (Rapid) Negative (NEGATIVE) Urine Collection Type Unknown Urine Color Yellow Urine Clarity Clear Urine pH 5.5 Urine Specific [place] 1.020 Urine Protein 100 mg/dl (NEG-TRACE) Urine Glucose (UA) Neg mg/dL (NEG) Urine Ketones (Stick) 15 mg/dL (NEG) Urine Blood Small (NEG) Urine Nitrite Neg (NEG) Urine Bilirubin Neg (NEG) Urine Urobilinogen Dipstick 2 mg/dL (0.2 mg/dL) Urine Leukocyte Esterase Neg (NEG) Urine RBC Occ /HPF (0-2) Urine WBC Occ /HPF (0-4) Urine Squamous Epithelial Cells Few /LPF Urine Bacteria 0 /HPF (0-FEW) Current Medications Medications (Trade) Dose Ordered Sig/Wero Route PRN Reason Start Time Stop Time Status Last Admin Dose Admin Sodium Chloride 1,000 ml @ 1,000 mls/hr 1X ONCE IV 01/05/18 15:15 01/05/18 16:14 DC 01/05/18 15:31 Piperacillin Sod/ Tazobactam Sod (Zosyn Per Pharmacy) 1 each PRN DAILY PRN MC SEE COMMENTS 01/05/18 15:15 Piperacillin Sod/ Tazobactam Sod 4.5 gm/Sodium Chloride 50 ml @ 100 mls/hr 1X ONCE IV 01/05/18 15:30 01/05/18 15:59 DC 01/05/18 15:32 Sodium Chloride 50 ml @ As Directed STK-MED ONCE .ROUTE 01/05/18 15:28 01/05/18 15:29 DC Piperacillin Sod/ Tazobactam Sod (Zosyn) 4.5 gm STK-MED ONCE IV 01/05/18 15:28 01/05/18 15:29 DC Sodium Chloride 1,000 ml @ 125 mls/hr Q8H IV 01/05/18 16:30 01/06/18 16:29 01/06/18 08:01 Acetaminophen (Tylenol) 650 mg PRN Q4HRS PRN PO FEVER 01/05/18 16:30 01/06/18 16:29 Sodium Chloride 1,000 ml @ 1,500 mls/hr Q40M IV 01/05/18 21:00 01/05/18 21:59 DC 01/05/18 22:01 Piperacillin Sod/ Tazobactam Sod 4.5 gm/Sodium Chloride 50 ml @ 100 mls/hr Q6HRS IV 01/06/18 00:00 01/06/18 05:38 Lactobacillus Rhamnosus (Culturelle) 1 cap BID PO 01/06/18 09:00 01/06/18 08:01 I & O 01/06/18 00:00 Intake Total 2125 ml Output Total 100 ml Balance 2025 ml Orders Procedure Category Date Status Time Saline Lock ER 01/05/18 Transmitted 15:03 Chest Ap Only RAD 01/05/18 Resulted 15:03 Blood Culture NADEEN 01/05/18 In Process 15:03 Cbc W Autodiff LAB 01/05/18 Complete 15:03 Comprehensive LAB 01/05/18 Complete Metabolic Panel 15:03 Lactic Acid LAB 01/05/18 Complete 15:03 Influenza A&B Rapid LAB 01/05/18 Complete 15:03 Ua, Cult If Indicated LAB 01/05/18 Complete 15:03 Iv Normal Saline PHA 01/05/18 Complete 1,000ml (Iv Sodium 15:15 Blood Culture NADEEN 01/05/18 In Process 15:04 Pip/Tazo Per Pharmacy PHA 01/05/18 In Process (Zosyn Per Pharmac 15:15 Piperacillin/Tazobactam PHA 01/05/18 Complete (Zosyn) 15:30 Iv Normal Saline 50ml PHA 01/05/18 Complete (Iv Sodium Chlorid 15:28 Piperacillin/Tazobactam PHA 01/05/18 Complete (Zosyn) 15:28 Ed Bridge Order ADT 01/05/18 Transmitted 16:20 Code Status CODE 01/05/18 Transmitted 16:20 Vital Signs, Per TONA 01/05/18 In Process Protocol 16:20 Advance Diet As TONA 01/05/18 In Process Tolerated 16:20 Ambulate Ad Mojgan TONA 01/05/18 In Process 16:20 Iv Normal Saline [facility] 01/05/18 In Process 1,000ml (Iv Sodium 16:30 Acetaminophen PHA 01/05/18 In Process (Tylenol) 16:30 Cbc W Autodiff LAB 01/06/18 Complete 05:00 Basic Metabolic Panel LAB 01/06/18 Complete 05:00 Admit Orders ADT 01/05/18 Transmitted Gi Soft DIET 01/06/18 Transmitted Breakfast Admission Screening CONS 01/05/18 Transmitted 19:13 Smoking Cessation RT 01/05/18 Complete 3-10 Min 19:13 Cdif W/ Epi Pcr LAB 01/05/18 In Process 20:40 Iv Normal Saline [facility] 01/05/18 Complete 1,000ml (Iv Sodium 21:00 Piperacillin/Tazobactam PHA 01/06/18 In Process (Zosyn) 00:00 Lactobacillus PHA 01/06/18 In Process Rhamnosus Gg 09:00 Pt. On Electrolyte [facility] 01/06/18 In Process Protocol 09:13 Vancomycin Per PHA 01/06/18 Transmitted Pharmacy (Vanco Per 09:15 Vital Signs Date Time Temp Pulse Resp B/P (MAP) Pulse Ox O2 Delivery O2 Flow Rate FiO2 01/06/18 05:35 99.1 88 18 96/65 (75) 97 Nasal Cannula 2.0 EFRAIN COLON DO Jan 06, 2018 09:14
[2018-01-06] MEDS ORDERED: VANCOMYCIN PER PHARMACY MC PRN (09:15)
[2018-01-06] MEDS ORDERED: VANCOMYCIN 1.25 GM in IV NORMAL SALINE 250ML 250 ML IV ONE (10:00)
[2018-01-06 10:33] VITALS: BP 87/60
[2018-01-06] MEDS: IPRATRPIUM/ALBUTEROL 0.5/2.5MG 3 ML NEBU. NEB SCH ×3 (13:00→20:21)
--- NOTE | 2018-01-06 13:33 | PDOC1 ---
History of Present Illness Chief Complaint: ABNORMAL LABS Allergies: Coded Allergies: No Known Drug Allergies (Unverified , 01/19/17) Review of Systems Review Of Systems Fourteen system , review of systems has been reviewed. See HPI for pertinent positives and negative responses, other pope all other systems are negative, non pertinent or non contributory Medications Current Medications Sodium Chloride 1,000 ml @ 1,000 mls/hr 1X ONCE IV Last administered on at 15:31; Start 01/05/18 at 15:15; Stop 01/05/18 at 16:14; Status DC Piperacillin Sod/ Tazobactam Sod (Zosyn Per Pharmacy) 1 each PRN DAILY PRN MC SEE COMMENTS; Start 01/05/18 at 15:15 Piperacillin Sod/ Tazobactam Sod 4.5 gm/Sodium Chloride 50 ml @ 100 mls/hr 1X ONCE IV Last administered on 01/05/18at 15:32; Start 01/05/18 at 15:30; Stop 03/14 at 15:59; Status DC Sodium Chloride 50 ml @ As Directed STK-MED ONCE .ROUTE ; Start 01/05/18 at 15: 28; Stop 01/05/18 at 15:29; Status DC Piperacillin Sod/ Tazobactam Sod (Zosyn) 4.5 gm STK-MED ONCE IV ; Start at 15:28; Stop 01/05/18 at 15:29; Status DC Sodium Chloride 1,000 ml @ 125 mls/hr Q8H IV Last administered on 01/06/18at 08 :01; Start 01/05/18 at 16:30; Stop 01/06/18 at 16:29 Acetaminophen (Tylenol) 650 mg PRN Q4HRS PRN PO FEVER; Start 01/05/18 at 16:30 ; Stop 01/06/18 at 16:29 Sodium Chloride 1,000 ml @ 1,500 mls/hr Q40M IV Last administered on at 22:01; Start 01/05/18 at 21:00; Stop 01/05/18 at 21:59; Status DC Piperacillin Sod/ Tazobactam Sod 4.5 gm/Sodium Chloride 50 ml @ 100 mls/hr Q6HRS IV Last administered on 01/06/18at 12:42; Start 01/06/18 at 00:00 Lactobacillus Rhamnosus (Culturelle) 1 cap BID PO Last administered on at 08:01; Start 01/06/18 at 09:00 Vancomycin HCl (Vanco Per Pharmacy) 1 each PRN DAILY PRN MC SEE COMMENTS Last administered on 01/06/18at 09:52; Start 01/06/18 at 09:15 Vancomycin HCl 750 mg/Sodium Chloride 250 ml @ 250 mls/hr Q12H IV ; Start 01/06 at 22:00 Vancomycin HCl 1.25 gm/Sodium Chloride 250 ml @ 167 mls/hr 1X ONCE IV Last administered on 01/06/18at 10:20; Start 01/06/18 at 10:00; Stop 01/06/18 at 11:29 ; Status DC Vancomycin HCl (Vancomycin Trough Level) 1 each 1X ONCE MC ; Start 01/07/18 at 21:30; Stop 01/07/18 at 21:31 Active Scripts Active Reported Robina Allergy (Fexofenadine Hcl) 180 Mg Tablet 1 Tab PO DAILY Prometh-Codein 6.25-10 mg/5 ml (Promethazine HCl/Codeine) 5 Ml Syrup 5-10 Ml PO Q12HR PRN Fluticasone Propionate Nasal [place] (Fluticasone Propionate) 16 Gm [place].susp 2 Spr NS DAILY PRN Ibuprofen 800 Mg Tablet 1 Tab PO TID PRN Sumatriptan Succinate 100 Mg Tablet 1 Tab PO UD PRN Evista (Raloxifene Hcl) 60 Mg Tablet 1 Tab PO DAILY Alprazolam 0.25 Mg Tablet 0.5 Tab PO BID PRN Trazodone Hcl 50 Mg Tablet 1 Tab PO QHS Cyclobenzaprine Hcl 10 Mg Tablet 1 Tab PO TID Advair 500-50 Diskus (Fluticasone/Salmeterol) 1 Each Disk.w.dev 1 Puff IH BID Wellbutrin Sr (Bupropion Hcl) 150 Mg Tablet.er 1 Tab PO QHS Proair Hfa Inhaler (Albuterol Sulfate) 8.5 Gm Hfa.aer.ad 1-2 Puff INH PRN Q4HRS PRN LAST DOSE GIVEN: DATE: TIME: NEXT DOSE DUE: DATE: TIME: Spiriva (Tiotropium [place]) 18 Mcg Cap.w.dev 18 Mg INH DAILY LAST DOSE GIVEN: DATE: TIME: NEXT DOSE DUE: DATE: TIME: Bupropion Hcl Sr (Bupropion Hcl) 150 Mg Tablet.er 300 Mg PO DAILY LAST DOSE GIVEN: DATE: TIME: NEXT DOSE DUE: DATE: TIME: Hydrocodone-Apap 7.5-325 (Hydrocodone Bit/Acetaminophen) 1 Each Tablet 7.5 Mg PO PRN Q6HRS PRN LAST DOSE GIVEN: DATE: TIME: NEXT DOSE DUE: DATE: TIME: Daliresp (Roflumilast) 500 Mcg Tablet 500 Mcg PO HS LAST DOSE GIVEN: DATE: TIME: NEXT DOSE DUE: DATE: TIME: Klor-Con M20 (Potassium Chloride) 20 Meq Tab.er.prt 20 Meq PO QODAY LAST DOSE GIVEN: DATE: TIME: NEXT DOSE DUE: DATE: TIME: Exam Vital Signs Vital Signs Date Time Temp Pulse Resp B/P (MAP) Pulse Ox O2 Delivery O2 Flow Rate FiO2 01/06/18 10:33 98.1 85 16 87/60 (69) 96 Nasal Cannula 2.0 COURSE Allergies Coded Allergies Type Severity Reaction Last Updated Verified No Known Drug Allergies 01/19/17 No Laboratory Tests Test 01/05/18 15:22 01/06/18 02:45 01/06/18 05:57 White Blood Count 11.9 x10^3/uL (4.0-11.0) 9.1 x10^3/uL (4.0-11.0) Red Blood Count 4.71 x10^6/uL (3.50-5.40) 3.92 x10^6/uL (3.50-5.40) Hemoglobin 15.2 g/dL (12.0-15.5) 12.4 g/dL (12.0-15.5) Hematocrit 43.6 % (36.0-47.0) 36.6 % (36.0-47.0) Mean Corpuscular Volume 93 fL (79-100) 94 fL (79-100) Mean Corpuscular Hemoglobin 32 pg (25-35) 32 pg (25-35) Mean Corpuscular Hemoglobin Concent 35 g/dL (31-37) 34 g/dL (31-37) Red Cell Distribution Width 13.4 % (11.5-14.5) 13.3 % (11.5-14.5) Platelet Count 156 x10^3/uL (140-400) 130 x10^3/uL (140-400) Neutrophils (%) (Auto) 84 % (31-73) 76 % (31-73) Lymphocytes (%) (Auto) 4 % (24-48) 10 % (24-48) Monocytes (%) (Auto) 12 % (0-9) 14 % (0-9) Eosinophils (%) (Auto) 0 % (0-3) 0 % (0-3) Basophils (%) (Auto) 0 % (0-3) 0 % (0-3) Neutrophils # (Auto) 10.0 x10^3uL (1.8-7.7) 6.9 x10^3uL (1.8-7.7) Lymphocytes # (Auto) 0.5 x10^3/uL (1.0-4.8) 0.9 x10^3/uL (1.0-4.8) Monocytes # (Auto) 1.4 x10^3/uL (0.0-1.1) 1.2 x10^3/uL (0.0-1.1) Eosinophils # (Auto) 0.0 x10^3/uL (0.0-0.7) 0.0 x10^3/uL (0.0-0.7) Basophils # (Auto) 0.0 x10^3/uL (0.0-0.2) 0.0 x10^3/uL (0.0-0.2) Sodium Level 130 mmol/L (136-145) 135 mmol/L (136-145) Potassium Level 3.6 mmol/L (3.5-5.1) 3.3 mmol/L (3.5-5.1) Chloride Level 97 mmol/L (98-107) 105 mmol/L (98-107) Carbon Dioxide Level 22 mmol/L (21-32) 22 mmol/L (21-32) Anion Gap 11 (6-14) 8 (6-14) Blood Urea Nitrogen 18 mg/dL (7-20) 11 mg/dL (7-20) Creatinine 0.9 mg/dL (0.6-1.0) 0.8 mg/dL (0.6-1.0) Estimated GFR (Cockcroft-Gault) 65.8 75.3 BUN/Creatinine Ratio 20 (6-20) Glucose Level 137 mg/dL (70-99) 104 mg/dL (70-99) Lactic Acid Level 1.2 mmol/L (0.4-2.0) Calcium Level 8.5 mg/dL (8.5-10.1) 7.3 mg/dL (8.5-10.1) Total Bilirubin 0.7 mg/dL (0.2-1.0) Aspartate Amino Transf (AST/SGOT) 61 U/L (15-37) Alanine Aminotransferase (ALT/SGPT) 46 U/L (14-59) Alkaline Phosphatase 172 U/L (46-116) Total Protein 7.5 g/dL (6.4-8.2) Albumin 2.7 g/dL (3.4-5.0) Albumin/Globulin Ratio 0.6 (1.0-1.7) Influenza Type A (Rapid) Negative (NEGATIVE) Influenza Type B (Rapid) Negative (NEGATIVE) Urine Collection Type Unknown Urine Color Yellow Urine Clarity Clear Urine pH 5.5 Urine Specific [place] 1.020 Urine Protein 100 mg/dl (NEG-TRACE) Urine Glucose (UA) Neg mg/dL (NEG) Urine Ketones (Stick) 15 mg/dL (NEG) Urine Blood Small (NEG) Urine Nitrite Neg (NEG) Urine Bilirubin Neg (NEG) Urine Urobilinogen Dipstick 2 mg/dL (0.2 mg/dL) Urine Leukocyte Esterase Neg (NEG) Urine RBC Occ /HPF (0-2) Urine WBC Occ /HPF (0-4) Urine Squamous Epithelial Cells Few /LPF Urine Bacteria 0 /HPF (0-FEW) Current Medications Medications (Trade) Dose Ordered Sig/Wero Route PRN Reason Start Time Stop Time Status Last Admin Dose Admin Sodium Chloride 1,000 ml @ 1,000 mls/hr 1X ONCE IV 01/05/18 15:15 01/05/18 16:14 DC 01/05/18 15:31 Piperacillin Sod/ Tazobactam Sod (Zosyn Per Pharmacy) 1 each PRN DAILY PRN MC SEE COMMENTS 01/05/18 15:15 Piperacillin Sod/ Tazobactam Sod 4.5 gm/Sodium Chloride 50 ml @ 100 mls/hr 1X ONCE IV 01/05/18 15:30 9/11/18 15:59 DC 01/05/18 15:32 Sodium Chloride 50 ml @ As Directed STK-MED ONCE .ROUTE 01/05/18 15:28 01/05/18 15:29 DC Piperacillin Sod/ Tazobactam Sod (Zosyn) 4.5 gm STK-MED ONCE IV 01/05/18 15:28 01/05/18 15:29 DC Sodium Chloride 1,000 ml @ 125 mls/hr Q8H IV 01/05/18 16:30 01/06/18 16:29 01/06/18 08:01 Acetaminophen (Tylenol) 650 mg PRN Q4HRS PRN PO FEVER 01/05/18 16:30 01/06/18 16:29 Sodium Chloride 1,000 ml @ 1,500 mls/hr Q40M IV 01/05/18 21:00 01/05/18 21:59 DC 01/05/18 22:01 Piperacillin Sod/ Tazobactam Sod 4.5 gm/Sodium Chloride 50 ml @ 100 mls/hr Q6HRS IV 01/06/18 00:00 01/06/18 12:42 Lactobacillus Rhamnosus (Culturelle) 1 cap BID PO 01/06/18 09:00 01/06/18 08:01 Vancomycin HCl (Vanco Per Pharmacy) 1 each PRN DAILY PRN MC SEE COMMENTS 01/06/18 09:15 01/06/18 09:52 Vancomycin HCl 750 mg/Sodium Chloride 250 ml @ 250 mls/hr Q12H IV 01/06/18 22:00 Vancomycin HCl 1.25 gm/Sodium Chloride 250 ml @ 167 mls/hr 1X ONCE IV 01/06/18 10:00 01/06/18 11:29 DC 01/06/18 10:20 Vancomycin HCl (Vancomycin Trough Level) 1 each 1X ONCE MC 01/07/18 21:30 01/07/18 21:31 I & O 01/06/18 00:00 Intake Total 2125 ml Output Total 100 ml Balance 2025 ml Orders Procedure Category Date Status Time Saline Lock ER 01/05/18 Transmitted 15:03 Chest Ap Only RAD 01/05/18 Resulted 15:03 Blood Culture NADEEN 01/05/18 In Process 15:03 Cbc W Autodiff LAB 01/05/18 Complete 15:03 Comprehensive LAB 01/05/18 Complete Metabolic Panel 15:03 Lactic Acid LAB 01/05/18 Complete 15:03 Influenza A&B Rapid LAB 01/05/18 Complete 15:03 Ua, Cult If Indicated LAB 01/05/18 Complete 15:03 Iv Normal Saline PHA 01/05/18 Complete 1,000ml (Iv Sodium 15:15 Blood Culture NADEEN 01/05/18 In Process 15:04 Pip/Tazo Per Pharmacy PHA 01/05/18 In Process (Zosyn Per Pharmac 15:15 Piperacillin/Tazobactam PHA 01/05/18 Complete (Zosyn) 15:30 Iv Normal Saline 50ml PHA 01/05/18 Complete (Iv Sodium Chlorid 15:28 Piperacillin/Tazobactam PHA 01/05/18 Complete (Zosyn) 15:28 Ed Bridge Order ADT 01/05/18 Transmitted 16:20 Code Status CODE 01/05/18 Transmitted 16:20 Vital Signs, Per TONA 01/05/18 In Process Protocol 16:20 Advance Diet As TONA 01/05/18 In Process Tolerated 16:20 Ambulate Ad Mojgan TONA 01/05/18 In Process 16:20 Iv Normal Saline PHA 01/05/18 In Process 1,000ml (Iv Sodium 16:30 Acetaminophen PHA 01/05/18 In Process (Tylenol) 16:30 Cbc W Autodiff LAB 01/06/18 Complete 05:00 Basic Metabolic Panel LAB 01/06/18 Complete 05:00 Admit Orders ADT 01/05/18 Transmitted Gi Soft DIET 01/06/18 Transmitted Breakfast Admission Screening CONS 01/05/18 Transmitted 19:13 Smoking Cessation RT 01/05/18 Complete 3-10 Min 19:13 Cdif W/ Epi Pcr LAB 01/05/18 In Process 20:40 Iv Normal Saline PHA 01/05/18 Complete 1,000ml (Iv Sodium 21:00 Piperacillin/Tazobactam PHA 01/06/18 In Process (Zosyn) 00:00 Lactobacillus PHA 01/06/18 In Process Rhamnosus Gg 09:00 Pt. On Electrolyte TONA 01/06/18 In Process Protocol 09:13 Vancomycin Per PHA 01/06/18 In Process Pharmacy (Vanco Per 09:15 Vancomycin PHA 01/06/18 In Process (Vancomycin) 22:00 Vancomycin PHA 01/06/18 Complete (Vancomycin) 10:00 Vancomycin, Trough LAB 01/07/18 Verified 21:30 Vancomycin Trough PHA 01/07/18 In Process Level (Vancomycin Trou 21:30 Vital Signs Date Time Temp Pulse Resp B/P (MAP) Pulse Ox O2 Delivery O2 Flow Rate FiO2 01/06/18 10:33 98.1 85 16 87/60 (69) 96 Nasal Cannula 2.0 EFRAIN COLON DO Jan 06, 2018 13:33
[2018-01-06] MEDS ORDERED: HYDR25TA PO (14:46)
[2018-01-06] MEDS ORDERED: POLY17PO5 PO (14:46)
[2018-01-06] MEDS ORDERED: BUPR150T15 PO (14:46)
[2018-01-06 15:00] VITALS: BP 92/60
[2018-01-06] MEDS: ACETAMINOPHEN 325 MG TABLET PO PRN (17:35)
[2018-01-06 19:30] VITALS: BP 93/53
[2018-01-06] MEDS ORDERED: POTASSIUM CHLORIDE 20 MEQ TABLET.ER. PO ONE (19:30)
[2018-01-06] MEDS: POTASSIUM CL 20MEQ IN 0.9%NACL 1,000 ML IV SCH (20:19)
[2018-01-06] MEDS: VANCOMYCIN 750 MG in IV NORMAL SALINE 250ML 250 ML IV SCH (21:56)
[2018-01-06 23:10] VITALS: BP 90/55
[2018-01-07] MEDS: PIPERACILLIN/TAZOBACTAM 4.5 GM in IV NORMAL SALINE 50ML 50 ML IV SCH ×4 (00:07→17:42)
[2018-01-07] MEDS ORDERED: ONDANSETRON PF 4 MG/2 ML VIAL. IV PRN (02:30)
[2018-01-07] MEDS: POTASSIUM CL 20MEQ IN 0.9%NACL 1,000 ML IV SCH ×2 (05:38→12:00)
[2018-01-07] MEDS: IPRATRPIUM/ALBUTEROL 0.5/2.5MG 3 ML NEBU. NEB SCH ×4 (05:44→20:00)
[2018-01-07 05:55] VITALS: BP 90/61
[2018-01-07 06:32] LABS: BASO % 0 % (0-3); EOS # 0.1 x10^3/uL (0.0-0.7); EOS % 2 % (0-3); HEMATOCRIT 31.8 % (36.0-47.0); HEMOGLOBIN 10.9 g/dL (12.0-15.5); LYMPH # 0.8 x10^3/uL (1.0-4.8); LYMPH % 14 % (24-48); MEAN CORPUSCULAR HEMOGLOBIN 32 pg (25-35); MEAN CORPUSCULAR HGB CONC 34 g/dL (31-37); MEAN CORPUSCULAR VOLUME 93 fL (79-100); MONO # 0.7 x10^3/uL (0.0-1.1); MONO % 12 % (0-9); NEUT # 4.3 x10^3uL (1.8-7.7); NEUT % 72 % (31-73); PLATELET COUNT 128 x10^3/uL (140-400); RED BLOOD COUNT 3.42 x10^6/uL (3.50-5.40); RED CELL DISTRIBUTION WIDTH 13.6 % (11.5-14.5)
[2018-01-07] MEDS: LACTOBACILLUS RHAMNOSUS GG 1 CAPSULE. PO SCH ×2 (08:41→20:20)
[2018-01-07] MEDS: LOPERAMIDE 2 MG CAPSULE PO PRN ×2 (09:06→10:11)
[2018-01-07] MEDS: VANCOMYCIN 750 MG in IV NORMAL SALINE 250ML 250 ML IV SCH (10:06)
[2018-01-07 10:43] VITALS: BP 91/60
[2018-01-07] MEDS ORDERED: POTASSIUM CHLORIDE 20 MEQ TABLET.ER. PO ONE (13:00)
[2018-01-07 14:37] VITALS: BP 98/63
--- NOTE | 2018-01-07 15:39 | PDOC ---
OBJECTIVE: Problems: Problems Medical Problems: (1) Bacteremia Status: Acute Vital Signs: Vital Signs Date Time Temp Pulse Resp B/P (MAP) Pulse Ox O2 Delivery O2 Flow Rate FiO2 01/07/18 14:37 99.0 89 20 98/63 (75) 98 Room Air 01/07/18 05:44 0.0 I & O Intake and Output 01/07/18 07:00 Intake Total 2956 ml Output Total 950 ml Balance 2006 ml Intake Oral 1170 ml IV Total 1786 ml Output Urine Total 950 ml # Bowel Movements 5 Labs: Laboratory Tests Test 01/05/18 20:30 01/06/18 02:45 01/06/18 05:57 01/07/18 06:00 Clostridium difficile Toxin (PCR) Negative (Negative) Urine Collection Type Unknown Urine Color Yellow Urine Clarity Clear Urine pH 5.5 Urine Specific [place] 1.020 Urine Protein 100 mg/dl (NEG-TRACE) Urine Glucose (UA) Neg mg/dL (NEG) Urine Ketones (Stick) 15 mg/dL (NEG) Urine Blood Small (NEG) Urine Nitrite Neg (NEG) Urine Bilirubin Neg (NEG) Urine Urobilinogen Dipstick 2 mg/dL (0.2 mg/dL) Urine Leukocyte Esterase Neg (NEG) Urine RBC Occ /HPF (0-2) Urine WBC Occ /HPF (0-4) Urine Squamous Epithelial Cells Few /LPF Urine Bacteria 0 /HPF (0-FEW) White Blood Count 9.1 x10^3/uL (4.0-11.0) 6.0 x10^3/uL (4.0-11.0) Red Blood Count 3.92 x10^6/uL (3.50-5.40) 3.42 x10^6/uL (3.50-5.40) Hemoglobin 12.4 g/dL (12.0-15.5) 10.9 g/dL (12.0-15.5) Hematocrit 36.6 % (36.0-47.0) 31.8 % (36.0-47.0) Mean Corpuscular Volume 94 fL (79-100) 93 fL (79-100) Mean Corpuscular Hemoglobin 32 pg (25-35) 32 pg (25-35) Mean Corpuscular Hemoglobin Concent 34 g/dL (31-37) 34 g/dL (31-37) Red Cell Distribution Width 13.3 % (11.5-14.5) 13.6 % (11.5-14.5) Platelet Count 130 x10^3/uL (140-400) 128 x10^3/uL (140-400) Neutrophils (%) (Auto) 76 % (31-73) 72 % (31-73) Lymphocytes (%) (Auto) 10 % (24-48) 14 % (24-48) Monocytes (%) (Auto) 14 % (0-9) 12 % (0-9) Eosinophils (%) (Auto) 0 % (0-3) 2 % (0-3) Basophils (%) (Auto) 0 % (0-3) 0 % (0-3) Neutrophils # (Auto) 6.9 x10^3uL (1.8-7.7) 4.3 x10^3uL (1.8-7.7) Lymphocytes # (Auto) 0.9 x10^3/uL (1.0-4.8) 0.8 x10^3/uL (1.0-4.8) Monocytes # (Auto) 1.2 x10^3/uL (0.0-1.1) 0.7 x10^3/uL (0.0-1.1) Eosinophils # (Auto) 0.0 x10^3/uL (0.0-0.7) 0.1 x10^3/uL (0.0-0.7) Basophils # (Auto) 0.0 x10^3/uL (0.0-0.2) 0.0 x10^3/uL (0.0-0.2) Sodium Level 135 mmol/L (136-145) Potassium Level 3.3 mmol/L (3.5-5.1) Chloride Level 105 mmol/L (98-107) Carbon Dioxide Level 22 mmol/L (21-32) Anion Gap 8 (6-14) Blood Urea Nitrogen 11 mg/dL (7-20) Creatinine 0.8 mg/dL (0.6-1.0) Estimated GFR (Cockcroft-Gault) 75.3 Glucose Level 104 mg/dL (70-99) Calcium Level 7.3 mg/dL (8.5-10.1) EFRAIN COLON DO Jan 07, 2018 15:39
[2018-01-07 19:21] VITALS: BP 92/64
[2018-01-07] MEDS: ACETAMINOPHEN 325 MG TABLET PO PRN (20:20)
[2018-01-07 22:55] VITALS: BP 94/59
[2018-01-08] MEDS: PIPERACILLIN/TAZOBACTAM 4.5 GM in IV NORMAL SALINE 50ML 50 ML IV SCH ×3 (00:16→11:27)
[2018-01-08 05:04] VITALS: BP 107/72
[2018-01-08] MEDS: IPRATRPIUM/ALBUTEROL 0.5/2.5MG 3 ML NEBU. NEB SCH ×2 (05:30→11:33)
[2018-01-08 06:59] LABS: BASO % 1 % (0-3); EOS # 0.3 x10^3/uL (0.0-0.7); EOS % 5 % (0-3); HEMATOCRIT 32.2 % (36.0-47.0); HEMOGLOBIN 11.1 g/dL (12.0-15.5); LYMPH # 1.4 x10^3/uL (1.0-4.8); LYMPH % 23 % (24-48); MEAN CORPUSCULAR HEMOGLOBIN 32 pg (25-35); MEAN CORPUSCULAR HGB CONC 34 g/dL (31-37); MEAN CORPUSCULAR VOLUME 93 fL (79-100); MONO # 0.9 x10^3/uL (0.0-1.1); MONO % 15 % (0-9); NEUT # 3.6 x10^3uL (1.8-7.7); NEUT % 58 % (31-73); PLATELET COUNT 177 x10^3/uL (140-400); RED BLOOD COUNT 3.45 x10^6/uL (3.50-5.40); RED CELL DISTRIBUTION WIDTH 14.2 % (11.5-14.5); WHITE BLOOD COUNT 6.2 x10^3/uL (4.0-11.0)
[2018-01-08 07:10] LABS: CALCIUM 7.5 mg/dL (8.5-10.1); CREATININE 0.6 mg/dL (0.6-1.0)
[2018-01-08 07:15] LABS: POTASSIUM 2.8 mmol/L (3.5-5.1)
[2018-01-08] MEDS: POTASSIUM CHLORIDE 20 MEQ/15 ML ORAL LIQUID. FT SCH ×2 (07:36→11:29)
[2018-01-08] MEDS: LOPERAMIDE 2 MG CAPSULE PO PRN ×2 (07:38→09:30)
[2018-01-08] MEDS: LACTOBACILLUS RHAMNOSUS GG 1 CAPSULE. PO SCH (07:38)
--- NOTE | 2018-01-08 12:12 | PDOC3 ---
Discharge Summary Visit Information Date of Admission: Jan 05, 2018 Date of Discharge: Jan 08, 2018 Admitting Diagnosis: Klebsiella pneumoniae septicemia, dehydration with hypon Final Diagnosis Problems Medical Problems: (1) Bacteremia Status: Acute Brief Hospital Course Allergies Allergies Coded Allergies Type Severity Reaction Last Updated Verified No Known Drug Allergies 01/19/17 No Vital Signs Vital Signs Date Time Temp Pulse Resp B/P (MAP) Pulse Ox O2 Delivery O2 Flow Rate FiO2 01/08/18 11:34 98 Room Air 01/08/18 05:04 98.0 80 18 107/72 (84) 01/07/18 05:44 0.0 Lab Results Laboratory Tests Test 01/07/18 06:00 01/08/18 06:12 White Blood Count 6.0 x10^3/uL (4.0-11.0) 6.2 x10^3/uL (4.0-11.0) Red Blood Count 3.42 x10^6/uL (3.50-5.40) 3.45 x10^6/uL (3.50-5.40) Hemoglobin 10.9 g/dL (12.0-15.5) 11.1 g/dL (12.0-15.5) Hematocrit 31.8 % (36.0-47.0) 32.2 % (36.0-47.0) Mean Corpuscular Volume 93 fL (79-100) 93 fL (79-100) Mean Corpuscular Hemoglobin 32 pg (25-35) 32 pg (25-35) Mean Corpuscular Hemoglobin Concent 34 g/dL (31-37) 34 g/dL (31-37) Red Cell Distribution Width 13.6 % (11.5-14.5) 14.2 % (11.5-14.5) Platelet Count 128 x10^3/uL (140-400) 177 x10^3/uL (140-400) Neutrophils (%) (Auto) 72 % (31-73) 58 % (31-73) Lymphocytes (%) (Auto) 14 % (24-48) 23 % (24-48) Monocytes (%) (Auto) 12 % (0-9) 15 % (0-9) Eosinophils (%) (Auto) 2 % (0-3) 5 % (0-3) Basophils (%) (Auto) 0 % (0-3) 1 % (0-3) Neutrophils # (Auto) 4.3 x10^3uL (1.8-7.7) 3.6 x10^3uL (1.8-7.7) Lymphocytes # (Auto) 0.8 x10^3/uL (1.0-4.8) 1.4 x10^3/uL (1.0-4.8) Monocytes # (Auto) 0.7 x10^3/uL (0.0-1.1) 0.9 x10^3/uL (0.0-1.1) Eosinophils # (Auto) 0.1 x10^3/uL (0.0-0.7) 0.3 x10^3/uL (0.0-0.7) Basophils # (Auto) 0.0 x10^3/uL (0.0-0.2) 0.0 x10^3/uL (0.0-0.2) Sodium Level 142 mmol/L (136-145) Potassium Level 2.8 mmol/L (3.5-5.1) Chloride Level 108 mmol/L (98-107) Carbon Dioxide Level 26 mmol/L (21-32) Anion Gap 8 (6-14) Blood Urea Nitrogen 3 mg/dL (7-20) Creatinine 0.6 mg/dL (0.6-1.0) Estimated GFR (Cockcroft-Gault) 105.0 Glucose Level 95 mg/dL (70-99) Calcium Level 7.5 mg/dL (8.5-10.1) Brief Hospital Course Ms. Curran is a 52 old female who presented with several days history of fever or diarrhea and fatigue along with positive blood cultures for Klebsiella pneumonia. Her sodium was low on admission and she was clinically very dehydrated. She was initially started on Zosyn and vancomycin with IV hydration. Sodium has improved from 130-141, critical potassium level of 2.8 this morning responded well to oral supplementation currently it is 4.2. She's been afebrile for greater than 24 hours and other than the persistent loose stools (C. difficile negative) denies feeling ill or any current complaints. Gen.: Alert and oriented in no apparent distress appears well-hydrated HEENT: Normocephalic atraumatic, PERRLA EOMI oral mucosa is pink and moist Neck: Supple nontender Pulmonary: Faint wheeze bilaterally with good air movement no respiratory distress Cardiovascular: Normal S1 and S2 no murmur Abdomen: Soft nontender nondistended bowel sounds slightly hyperactive Extremities: No clubbing cyanosis or edema Discharge Information Condition at Discharge: Improved Follow Up: Weeks (your doctor this week) Disposition/Orders: D/C to Home Dischare Medications Current Medications Sodium Chloride 1,000 ml @ 1,000 mls/hr 1X ONCE IV Last administered on at 15:31; Start 01/05/18 at 15:15; Stop 01/05/18 at 16:14; Status DC Piperacillin Sod/ Tazobactam Sod (Zosyn Per Pharmacy) 1 each PRN DAILY PRN MC SEE COMMENTS; Start 01/05/18 at 15:15 Piperacillin Sod/ Tazobactam Sod 4.5 gm/Sodium Chloride 50 ml @ 100 mls/hr 1X ONCE IV Last administered on 01/05/18at 15:32; Start 01/05/18 at 15:30; Stop 03/14 at 15:59; Status DC Sodium Chloride 50 ml @ As Directed STK-MED ONCE .ROUTE ; Start 01/05/18 at 15: 28; Stop 01/05/18 at 15:29; Status DC Piperacillin Sod/ Tazobactam Sod (Zosyn) 4.5 gm STK-MED ONCE IV ; Start at 15:28; Stop 01/05/18 at 15:29; Status DC Sodium Chloride 1,000 ml @ 125 mls/hr Q8H IV Last administered on 01/06/18at 08 :01; Start 01/05/18 at 16:30; Stop 01/06/18 at 16:29; Status DC Acetaminophen (Tylenol) 650 mg PRN Q4HRS PRN PO FEVER; Start 01/05/18 at 16:30 ; Stop 01/06/18 at 16:29; Status DC Sodium Chloride 1,000 ml @ 1,500 mls/hr Q40M IV Last administered on at 22:01; Start 01/05/18 at 21:00; Stop 01/05/18 at 21:59; Status DC Piperacillin Sod/ Tazobactam Sod 4.5 gm/Sodium Chloride 50 ml @ 100 mls/hr Q6HRS IV Last administered on 01/08/18at 05:42; Start 01/06/18 at 00:00 Lactobacillus Rhamnosus (Culturelle) 1 cap BID PO Last administered on at 07:38; Start 01/06/18 at 09:00 Vancomycin HCl (Vanco Per Pharmacy) 1 each PRN DAILY PRN MC SEE COMMENTS Last administered on 01/06/18at 09:52; Start 01/06/18 at 09:15; Stop 01/07/18 at 15:29 ; Status DC Vancomycin HCl 750 mg/Sodium Chloride 250 ml @ 250 mls/hr Q12H IV Last administered on 01/07/18at 10:06; Start 01/06/18 at 22:00; Stop 01/07/18 at 15:29 ; Status DC Vancomycin HCl 1.25 gm/Sodium Chloride 250 ml @ 167 mls/hr 1X ONCE IV Last administered on 01/06/18at 10:20; Start 01/06/18 at 10:00; Stop 01/06/18 at 11:29 ; Status DC Vancomycin HCl (Vancomycin Trough Level) 1 each 1X ONCE MC ; Start 01/07/18 at 21:30; Stop 01/07/18 at 21:31; Status Cancel Albuterol/ Ipratropium (Duoneb) 3 ml RTQID NEB Last administered on 01/08/18at 11:33; Start 01/06/18 at 13:00 Acetaminophen (Tylenol) 650 mg PRN Q6HRS PRN PO PAIN / TEMP Last administered on 01/07/18at 20:20; Start 01/06/18 at 17:30 Potassium Chloride (Klor-Con) 40 meq 1X ONCE PO Last administered on at 20:19; Start 01/06/18 at 19:30; Stop 01/06/18 at 19:31; Status DC Potassium Chloride/Sodium Chloride 1,000 ml @ 125 mls/hr Q8H IV Last administered on 01/07/18at 05:38; Start 01/06/18 at 20:00; Stop 01/07/18 at 17:15 ; Status DC Ondansetron HCl (Zofran) 4 mg PRN Q6HRS PRN IV NAUSEA/VOMITING Last administered on 01/07/18at 02:31; Start 01/07/18 at 02:30 Loperamide HCl (Imodium) 2 mg PRN Q15MIN PRN PO DIARRHEA Last administered on at 09:30; Start 01/07/18 at 09:00 Potassium Chloride (Klor-Con) 40 meq 1X ONCE PO ; Start 01/07/18 at 13:00; Stop 01/07/18 at 13:01; Status DC Potassium Chloride (KCl Oral Soln) 40 meq Q4H FT Last administered on at 11:29; Start 01/08/18 at 07:30; Stop 01/08/18 at 11:31; Status DC Active Scripts Active Reported Miralax (Polyethylene Glycol 3350) 17 Gm Powd.pack 1 Packet PO DAILY Hydroxyzine Hcl 25 Mg Tablet 1-2 Tab PO TID Wellbutrin Xl (Bupropion Hcl) 150 Mg Tab.er.24h 0.5 Tab PO DAILY Robina Allergy (Fexofenadine Hcl) 180 Mg Tablet 1 Tab PO DAILY Prometh-Codein 6.25-10 mg/5 ml (Promethazine HCl/Codeine) 5 Ml Syrup 5-10 Ml PO Q12HR PRN Fluticasone Propionate Nasal [place] (Fluticasone Propionate) 16 Gm [place].susp 2 Spr NS DAILY PRN Ibuprofen 800 Mg Tablet 1 Tab PO TID PRN Sumatriptan Succinate 100 Mg Tablet 1 Tab PO UD PRN Evista (Raloxifene Hcl) 60 Mg Tablet 1 Tab PO DAILY Alprazolam 0.25 Mg Tablet 0.5 Tab PO BID PRN Trazodone Hcl 50 Mg Tablet 1 Tab PO QHS Cyclobenzaprine Hcl 10 Mg Tablet 1 Tab PO TID Advair 500-50 Diskus (Fluticasone/Salmeterol) 1 Each Disk.w.dev 1 Puff IH BID Proair Hfa Inhaler (Albuterol Sulfate) 8.5 Gm Hfa.aer.ad 1-2 Puff INH PRN Q4HRS PRN LAST DOSE GIVEN: DATE: TIME: NEXT DOSE DUE: DATE: TIME: Spiriva (Tiotropium [place]) 18 Mcg Cap.w.dev 18 Mg INH DAILY LAST DOSE GIVEN: DATE: TIME: NEXT DOSE DUE: DATE: TIME: Hydrocodone-Apap 7.5-325 (Hydrocodone Bit/Acetaminophen) 1 Each Tablet 7.5 Mg PO PRN Q6HRS PRN LAST DOSE GIVEN: DATE: TIME: NEXT DOSE DUE: DATE: TIME: Daliresp (Roflumilast) 500 Mcg Tablet 500 Mcg PO HS LAST DOSE GIVEN: DATE: TIME: NEXT DOSE DUE: DATE: TIME: Klor-Con M20 (Potassium Chloride) 20 Meq Tab.er.prt 20 Meq PO QODAY LAST DOSE GIVEN: DATE: TIME: NEXT DOSE DUE: DATE: TIME: Patient Instructions Patient Instuctions Activity as tolerated. Aggressive hydration. Cipro 500 mg twice daily for 14 days Loperamide 2 mg 3 times a day when necessary Follow-up with her doctor in 3-5 days for recheck of symptoms and labs EFRAIN COLON DO Jan 08, 2018 12:11
[2018-01-08 12:30] LABS: CALCIUM 7.9 mg/dL (8.5-10.1); CREATININE 0.7 mg/dL (0.6-1.0); GFR 87.9; POTASSIUM 4.2 mmol/L (3.5-5.1)
== END 2018-01-08 13:30 | disposition home or self-care (01) | DRG 871 ==
LOC: ER 14:19 → 1 SOUTH 16:30 → ER 17:35
PROVIDERS: ADMIT Neuromusculoskeletal Medicine & OMM; ATTEND Neuromusculoskeletal Medicine & OMM
DX: A41.59 Other Gram-negative sepsis (principal); E43 Unspecified severe protein-calorie malnutrition; F41.9 Anxiety disorder, unspecified; G43.909 Migraine, unspecified, not intractable, without status migrainosus; E86.0 Dehydration; J44.9 Chronic obstructive pulmonary disease, unspecified; M81.0 Age-related osteoporosis without current pathological fracture; Z87.891 Personal history of nicotine dependence; Z90.49 Acquired absence of other specified parts of digestive tract; Z90.710 Acquired absence of both cervix and uterus; Z68.21 Body mass index [BMI] 21.0-21.9, adult; Z79.899 Other long term (current) drug therapy
CPT/HCPCS: 36415; 71045; 80048; 80053; 81001; 83605; 85025; 87040; 87205; 87324; 87804; 94640; 96365; 99406; J2405; J2543; J3370; J7050; J7620; 99285-25; J7030

== ENCOUNTER → 2019-05-24 | Outpatient (CLI) | payer MEDICARE, OTHER ==
[~2019-05-24] MED LIST: ALBU2.5V8 INH; ALPR0.254 PO; BUPR150T11 PO; BUPR150T15 PO; BUPR150T8 PO; CYCL-331 PO; FEXO180T81 PO; FLUT16SP21 NS; FLUT1DIS5 IH; HYDR-2765 PO; HYDR25TA PO; IBUP800T19 PO; ONDA-84 PO; POLY17PO5 PO; POTA20TA4 PO; PROM5SYR2 PO; RALO60TA PO; ROFL500T7 PO; SUMA100T4 PO; TIOT18CA INH; TRAZ-120 PO
--- NOTE | 2019-05-24 09:17 | RAD ---
EXAM: Chest, 2 views. HISTORY: Shortness of breath. COMPARISON: 01/05/2018 FINDINGS: 2 views of chest are obtained. There is no infiltrate, pleural effusion or pneumothorax. There is hyperinflation due to emphysema. The heart is normal in size. IMPRESSION: Emphysema. No acute pulmonary finding. Electronically signed by: Earnestine Arnold MD (05/24/2019 9:14 AM) [facility]
--- NOTE | 2019-05-24 10:36 | RAD ---
EXAM: Abdomen sonogram. HISTORY: Weight loss. TECHNIQUE: Sonographic imaging of the abdomen was performed. COMPARISON: None. FINDINGS: The liver is normal in size. No focal hepatic lesion is seen. The common bile duct is normal in caliber. The gallbladder is unremarkable. The right kidney measures 8.4 cm [id number]. There is no hydronephrosis. The pancreas and inferior vena cava are unremarkable. There is aortic atherosclerosis. IMPRESSION: 1. Mildly decreased right renal size. This may be due to measurement technique or mild atrophy. 2. Aortic atherosclerosis. Electronically signed by: Earnestine Arnold MD (05/24/2019 10:33 AM) [facility]
== END | disposition home or self-care (01) ==
LOC: US 08:48
PROVIDERS: ATTEND Physician Assistant
DX: I70.0 Atherosclerosis of aorta (principal); J43.9 Emphysema, unspecified; R63.4 Abnormal weight loss
CPT/HCPCS: 71046; 76705

== ENCOUNTER 2019-07-02 16:10 | Emergency (ER) | payer MEDICARE, OTHER ==
[~2019-07-02] VITALS: Ht 157.5 cm; Wt 47.3 kg
[2019-07-02] MEDS ORDERED: FAMOTIDINE 20 MG/2 ML VIAL IVP ONE (16:30)
[2019-07-02] MEDS ORDERED: IV NORMAL SALINE 1,000ML 1,000 ML IV ONE (16:30)
[2019-07-02] MEDS ORDERED: ONDANSETRON PF 4 MG/2 ML VIAL. IVP ONE (16:30)
[2019-07-02] MEDS ORDERED: ACETAMINOPHEN 500 MG TABLET PO ONE (16:30)
[2019-07-02] MEDS ORDERED: IOHEXOL 300 MG/ML 75 ML VIAL. IV ONE (16:45)
[2019-07-02 17:04] LABS: BASO % 1 % (0-3); EOS % 0 % (0-3); HEMATOCRIT 45.4 % (36.0-47.0); HEMOGLOBIN 15.6 g/dL (12.0-15.5); LYMPH # 1.1 x10^3/uL (1.0-4.8); LYMPH % 13 % (24-48); MEAN CORPUSCULAR HEMOGLOBIN 31 pg (25-35); MEAN CORPUSCULAR HGB CONC 34 g/dL (31-37); MEAN CORPUSCULAR VOLUME 89 fL (79-100); MONO # 0.7 x10^3/uL (0.0-1.1); MONO % 8 % (0-9); NEUT # 6.7 x10^3uL (1.8-7.7); NEUT % 78 % (31-73); PLATELET COUNT 175 x10^3/uL (140-400); RED CELL DISTRIBUTION WIDTH 12.3 % (11.5-14.5); WHITE BLOOD COUNT 8.5 x10^3/uL (4.0-11.0)
[2019-07-02 17:12] LABS: CALCIUM 8.4 mg/dL (8.5-10.1); CREATININE 0.9 mg/dL (0.6-1.0); GFR 65.5; POTASSIUM 4.3 mmol/L (3.5-5.1)
--- NOTE | 2019-07-02 17:16 | RAD ---
Exam: CT of abdomen and pelvis INDICATION: Lower abdominal pain TECHNIQUE: Sequential axial images through the abdomen and pelvis obtained following the administration of 75 mL of Omni 300 IV contrast. Sagittal and coronal reformatted images were reconstructed from the axial data and reviewed. Comparisons: None FINDINGS: Heart size is normal. No pericardial effusion. Visualized lung bases are clear. No pleural effusion. Liver has mild intrahepatic biliary ductal dilatation. Gallbladder is nonenlarged. Common bile duct does not appear dilated. Spleen, and adrenals are unremarkable. Hypodense area at the pancreatic head measuring approximately 1.2 cm. No pancreatic ductal dilatation or peripancreatic inflammatory changes. Kidneys demonstrate symmetric enhancement. No perinephric inflammation or hydronephrosis. No renal or ureteral calculi are identified. Bladder is decompressed not well evaluated. Uterus is absent. No abnormal adnexal mass. Diverticulosis is noted within the sigmoid colon without evidence of acute diverticulitis. Remainder of the large and small bowel are unremarkable. Appendix is not identified. No free abdominal air or fluid. No obstruction. Abdominal aorta has a normal course and caliber. Abdominal vasculature is patent. No enlarged abdominal lymph nodes are identified. No suspicious osseous lesions or acute fractures. IMPRESSION: 1. Mild intrahepatic or ductal dilatation. 2. Question a 1.2 cm hypodense lesion at the pancreatic head, however this may represent interdigitating fat. Correlate with LFTs to determine the need for further evaluation with MRCP/ERCP. 3. Diverticulosis without evidence of acute diverticulitis. Exposure: One or more of the following in the visualized dose reduction techniques were utilized for this examination: 1. Automated exposure control 2. Adjustment of the MA and/or KV according to patient size 3. Use of iterative of reconstructive technique Electronically signed by: Kyler Roberts MD (07/02/2019 5:13 PM) [id number]
[2019-07-02 17:18] LABS: ALBUMIN/GLOBULIN RATIO 0.8 (1.0-1.7); MAGNESIUM 1.9 mg/dL (1.8-2.4); TOTAL BILIRUBIN 0.4 mg/dL (0.2-1.0); TOTAL PROTEIN 6.9 g/dL (6.4-8.2)
--- NOTE | 2019-07-02 17:22 | PHYS DOC ---
Past History Past Medical History: COPD, Other Additional Past Medical Histor: emphysema Past Surgical History: Appendectomy, Hysterectomy, Other Additional Past Surgical Histo: 2 shoulder surgeries Smoking: Quit Greater Than 1 Year Alcohol Use: None Drug Use: None Adult General Chief Complaint Chief Complaint: DIARRHEA HPI HPI 53-year-old female presents with report of 1 week history of lower abdominal cramping, diarrhea and subjective fever/chills. Denies known sick contacts. Denies recent antibiotic use. Denies trauma. Reports some associated nausea without vomiting. Patient also reports his been having some increased cough and wheezing. History of COPD. Denies recent smoking. Review of Systems Review of Systems Constitutional: Reports subjective fever, chills, and malaise Eyes: Denies redness or eye pain HENT: Denies nasal congestion or sore throat Respiratory: Reports cough and wheezing Cardiovascular: Denies chest pain or palpitations GI: Reports abdominal pain, nausea, and diarrhea; denies vomiting : Denies dysuria or hematuria Musculoskeletal: Denies back pain or joint pain Integument: Denies rash or skin lesions Neurologic: Denies headache, focal weakness or sensory changes; reports generalized weakness Complete systems were reviewed and found to be within normal limits, except as documented in this note. Current Medications Current Medications Current Medications Medications (Trade) Dose Ordered Sig/Wero Start Time Stop Time Status Last Admin Dose Admin Acetaminophen (Tylenol) 500 mg 1X ONCE 07/02/19 16:30 07/02/19 16:45 DC 07/02/19 17:15 500 MG Famotidine (Pepcid Vial) 20 mg 1X ONCE 07/02/19 16:30 07/02/19 16:45 DC 07/02/19 17:15 20 MG Iohexol (Omnipaque 300 Mg/ml) 75 ml 1X ONCE 07/02/19 16:45 07/02/19 16:46 DC 07/02/19 16:48 75 ML Ondansetron HCl (Zofran) 4 mg 1X ONCE 07/02/19 16:30 07/02/19 16:45 DC 07/02/19 17:15 4 MG Sodium Chloride 1,000 ml @ 1,000 mls/hr 1X ONCE 07/02/19 16:30 07/02/19 17:29 07/02/19 17:15 1,000 MLS/HR Allergies Allergies Allergies Coded Allergies Type Severity Reaction Last Updated Verified No Known Drug Allergies 9/25/17 No Physical Exam Physical Exam Constitutional: Well developed, well nourished, no acute distress, non-toxic appearance HENT: Normocephalic, atraumatic, oropharynx tacky Eyes: Conjunctiva normal, no discharge Neck: Normal range of motion, no tenderness, supple Cardiovascular: Heart rate normal, regular rhythm Lungs & Thorax: Bilateral breath sounds with scattered wheezing, no respiratory distress Abdomen: Soft, left lower quadrant tenderness, no distention/rebound tenderness/guarding Skin: Warm, dry, no erythema, no rash Back: No tenderness, no CVA tenderness Extremities: No tenderness, ROM intact, no edema Neurologic: Alert and oriented X 3, no focal deficits noted Psychologic: Affect normal, judgment normal Current Patient Data Vital Signs Vital Signs Date Time Temp Pulse Resp B/P (MAP) Pulse Ox O2 Delivery O2 Flow Rate FiO2 07/02/19 16:13 100.6 107 18 83/49 (60) 93 Room Air Lab Results Laboratory Tests Test 07/02/19 16:40 White Blood Count 8.5 x10^3/uL (4.0-11.0) Red Blood Count 5.10 x10^6/uL (3.50-5.40) Hemoglobin 15.6 g/dL (12.0-15.5) H Hematocrit 45.4 % (36.0-47.0) Mean Corpuscular Volume 89 fL (79-100) Mean Corpuscular Hemoglobin 31 pg (25-35) Mean Corpuscular Hemoglobin Concent 34 g/dL (31-37) Red Cell Distribution Width 12.3 % (11.5-14.5) Platelet Count 175 x10^3/uL (140-400) Neutrophils (%) (Auto) 78 % (31-73) H Lymphocytes (%) (Auto) 13 % (24-48) L Monocytes (%) (Auto) 8 % (0-9) Eosinophils (%) (Auto) 0 % (0-3) Basophils (%) (Auto) 1 % (0-3) Neutrophils # (Auto) 6.7 x10^3uL (1.8-7.7) Lymphocytes # (Auto) 1.1 x10^3/uL (1.0-4.8) Monocytes # (Auto) 0.7 x10^3/uL (0.0-1.1) Eosinophils # (Auto) 0.0 x10^3/uL (0.0-0.7) Basophils # (Auto) 0.0 x10^3/uL (0.0-0.2) Platelet Estimate Pending Lactic Acid Level 0.7 mmol/L (0.4-2.0) EKG EKG [] Radiology/Procedures Radiology/Procedures PROCEDURE: CT ABD PELV W/ IV CONTRST ONLY Exam: CT of abdomen and pelvis INDICATION: Lower abdominal pain TECHNIQUE: Sequential axial images through the abdomen and pelvis obtained following the administration of 75 mL of Omni 300 IV contrast. Sagittal and coronal reformatted images were reconstructed from the axial data and reviewed. Comparisons: None FINDINGS: Heart size is normal. No pericardial effusion. Visualized lung bases are clear. No pleural effusion. Liver has mild intrahepatic biliary ductal dilatation. Gallbladder is nonenlarged. Common bile duct does not appear dilated. Spleen, and adrenals are unremarkable. Hypodense area at the pancreatic head measuring approximately 1.2 cm. No pancreatic ductal dilatation or peripancreatic inflammatory changes. Kidneys demonstrate symmetric enhancement. No perinephric inflammation or hydronephrosis. No renal or ureteral calculi are identified. Bladder is decompressed not well evaluated. Uterus is absent. No abnormal adnexal mass. Diverticulosis is noted within the sigmoid colon without evidence of acute diverticulitis. Remainder of the large and small bowel are unremarkable. Appendix is not identified. No free abdominal air or fluid. No obstruction. Abdominal aorta has a normal course and caliber. Abdominal vasculature is patent. No enlarged abdominal lymph nodes are identified. No suspicious osseous lesions or acute fractures. IMPRESSION: 1. Mild intrahepatic or ductal dilatation. 2. Question a 1.2 cm hypodense lesion at the pancreatic head, however this may represent interdigitating fat. Correlate with LFTs to determine the need for further evaluation with MRCP/ERCP. 3. Diverticulosis without evidence of acute diverticulitis. Exposure: One or more of the following in the visualized dose reduction techniques were utilized for this examination: 1. Automated exposure control 2. Adjustment of the MA and/or KV according to patient size 3. Use of iterative of reconstructive technique Electronically signed by: Kyler Roberts MD (07/02/2019 5:13 PM) [id number] PROCEDURE: CHEST PA & LATERAL CHEST PA LATERAL History: Cough and fever Comparison: 05/24/2019 two-view chest x-ray exam. Findings: Frontal and lateral views of the chest were obtained. The cardiomediastinal silhouette is normal. Pulmonary vasculature is normal. The lungs are clear. No pleural effusion or pneumothorax is seen. There is no acute bone abnormality. Pulmonary hyperinflation is present. Minimal right apical linear scarring. IMPRESSION: COPD. No infiltrate. Electronically signed by: Byron Maria MD (07/02/2019 6:06 PM) [id number] Course & Med Decision Making Course & Med Decision Making Pertinent Labs and Imaging studies reviewed. (See chart for details) Patient presents with one-week history of diarrhea with associated nausea and lower abdominal pain. Pain primarily to left lower quadrant. Symptomatic treatment provided. IV fluid hydration given. Labs obtained and posted to chart. CT abdomen/pelvis without acute process. A incident notation was made regarding abnormality near pancreatic head. A copy of CT report provided to patient. Patient also complaining of cough. Some scattered wheezing noted upon auscultation. Chest x-ray with signs of COPD. Stool studies ordered however patient unable to provide sample. Patient stable for discharge with outpatient follow-up with PCP/GI. GI referral provided. Discussed findings and plan with patient and family, who acknowledge understanding and agreement. Dragon Disclaimer Dragon Disclaimer This electronic medical record was generated, in whole or in part, using a voice recognition dictation system. Departure Departure: Impression: Primary Impression: Diarrhea Additional Impressions: Hyponatremia Bronchitis Fever Disposition: 01 HOME, SELF-CARE Condition: IMPROVED Referrals: ALEXANDER [facility] (PCP) TRENT GUEVARA MD Patient Instructions: Acute Bronchitis, [id number], Diarrhea, [id number], Diet for Diarrhea, Adult, Fever, Adult, [id number]-[id number], Hyponatremia, [id number] Additional Instructions: Increase fluid hydration. Use BRAT diet (bananas, rice, applesauce, toast) to help form stool together. Scripts Ondansetron (ONDANSETRON ODT) 4 Mg Tab.rapdis 1 TAB PO PRN Q6-8HRS PRN for NAUSEA, #16 TAB Prov: ELIZABETH DUCKWORTH DO 07/02/19 Famotidine (PEPCID) 20 Mg Tablet 1 TAB PO BID for Gastritis, #14 TAB Prov: ELIZABETH DUCKWORTH DO 07/02/19 Hyoscyamine Sulfate (LEVSIN-SL) 0.125 Mg Tab.subl 0.125 MG SL Q4-6HRS PRN for PAIN, #14 TAB Prov: ELIZABETH DUCKWORTH DO 07/02/19 Problem Qualifiers Primary Impression: Diarrhea Diarrhea type: unspecified type Qualified Codes: R19.7 - Diarrhea, unspecified Additional Impressions: Fever Fever type: unspecified Qualified Codes: R50.9 - Fever, unspecified ELIZABETH DUCKWORTH DO Jul 02, 2019 17:22
--- NOTE | 2019-07-02 18:09 | RAD ---
CHEST PA LATERAL History: Cough and fever Comparison: 05/24/2019 two-view chest x-ray exam. Findings: Frontal and lateral views of the chest were obtained. The cardiomediastinal silhouette is normal. Pulmonary vasculature is normal. The lungs are clear. No pleural effusion or pneumothorax is seen. There is no acute bone abnormality. Pulmonary hyperinflation is present. Minimal right apical linear scarring. IMPRESSION: COPD. No infiltrate. Electronically signed by: Byron Maria MD (07/02/2019 6:06 PM) [id number]
[2019-07-02 18:23] LABS: % ATYL 1 % (0-0); % BANDS 3 % (0-9); % LYMPHS 11 % (24-48)
[2019-07-02 18:24] LABS: % MONOS 9 % (0-10); % SEGS 76 % (35-66)
[2019-07-02 18:25] LABS: ANISOCYTOSIS SLIGHT; PLT ESTIMATE ADEQUATE (ADEQUATE)
[2019-07-02 18:31] LABS: BACTERIA,URINE 0 /HPF (0-FEW); BILIRUBIN,URINE NEG (NEG); CLARITY,URINE CLEAR; COLOR,URINE YELLOW; GLUCOSE,URINE NEG (NEG); NITRITE,URINE NEG (NEG); SQUAMOUS EPITHELIAL CELL,UR OCC /LPF; UROBILINOGEN,URINE 0.2 mg/dL (0.2 mg/dL)
[2019-07-02] MEDS ORDERED: FAMO-63 PO (18:34)
[2019-07-02] MEDS ORDERED: HYOS0.1265 SL (18:34)
[2019-07-02] MEDS ORDERED: ONDA4TAB12 PO (18:34)
[2019-07-02 18:46] VITALS: BP 92/56
== END 2019-07-02 18:50 | disposition home or self-care (01) ==
LOC: ER 16:10
DX: J44.9 Chronic obstructive pulmonary disease, unspecified (principal); R19.7 Diarrhea, unspecified; E87.1 Hypo-osmolality and hyponatremia; Z87.891 Personal history of nicotine dependence
CPT/HCPCS: 36415; 71046; 74177; 80053; 81001; 83605; 83690; 83735; 85007; 85025; 85610; 85730; 96361; 96374; 96375; 99285; J2405; J3490; Q9967; J7030